=== PATIENT | female | born 1980 | race Caucasian/White ===

== ENCOUNTER 2018-05-20 06:35 | Day surgery (SDC) | payer OTHER ==
--- OUTSIDE RECORDS SUMMARY | 2018-05-20 06:38 | XMS REPORT ---
:1980 Author Organization [employer] Care Team Providers Name Role Phone Lisa Vides Provider Role Unavailable Allergies No Known Allergies Problems Problem Type Condition Code Onset Dates Condition Status Problem Memory deficits R41.3 Active Problem Bipolar 1 disorder F31.9 Active Problem Lightheadedness R42 Active Problem Gastroesophageal reflux disease, K21.9 Active esophagitis presence not specified Problem Circulation problem I99.9 Active Problem ADHD (attention deficit F90.2 Active hyperactivity disorder), combined type Problem Vitamin D deficiency E55.9 Active Problem Morbid obesity E66.01 Active Problem Hypertension, unspecified type I10 Active Problem Vitamin B12 deficiency E53.8 Active Problem Swelling R60.9 Active Problem Allergic arthritis M13.89 Active Assessment ADHD (attention deficit F90.2 Active hyperactivity disorder), combined type Problem Depression with anxiety F41.8 Active Problem Environmental allergies Z91.09 Active Problem Chronic pain syndrome G89.4 Active Medications No Known Medications Results No Known Results Summary Purpose [employer] Submission
--- OUTSIDE RECORDS SUMMARY | 2018-05-20 06:38 | XMS REPORT ---
:1980 Author Organization [employer] Care Team Providers Name Role Phone Lisa Vides Provider Role Unavailable Allergies No Known Allergies Problems Problem Type Condition Code Onset Dates Condition Status Problem Environmental allergies Z91.09 Active Problem Allergic arthritis M13.89 Active Problem Swelling R60.9 Active Problem History of fall Z91.81 Active Problem Acute pain of right knee M25.561 Active Problem Left hip pain M25.552 Active Problem Circulation problem I99.9 Active Problem Hypertension, unspecified type I10 Active Problem ADHD (attention deficit F90.2 Active hyperactivity disorder), combined type Problem Gastroesophageal reflux disease, K21.9 Active esophagitis presence not specified Problem Bipolar 1 disorder F31.9 Active Problem Morbid obesity E66.01 Active Problem Depression with anxiety F41.8 Active Problem Chronic pain syndrome G89.4 Active Problem Vitamin D deficiency E55.9 Active Problem Memory deficits R41.3 Active Problem Vitamin B12 deficiency E53.8 Active Problem Lightheadedness R42 Active Medications No Known Medications Results No Known Results Summary Purpose [employer] Submission
--- OUTSIDE RECORDS SUMMARY | 2018-05-20 06:38 | XMS REPORT ---
:1980 Author Organization [employer] Care Team Providers Name Role Phone Lisa Vides Provider Role Unavailable Allergies No Known Allergies Problems Problem Type Condition Code Onset Dates Condition Status Problem Swelling R60.9 Active Problem Depression with anxiety F41.8 Active Problem Allergic arthritis M13.89 Active Problem Vitamin D deficiency E55.9 Active Problem Morbid obesity E66.01 Active Problem Vitamin B12 deficiency E53.8 Active Problem Memory deficits R41.3 Active Problem Chronic pain syndrome G89.4 Active Problem Bipolar 1 disorder F31.9 Active Problem Lightheadedness R42 Active Problem Hypertension, unspecified type I10 Active Problem Circulation problem I99.9 Active Problem Gastroesophageal reflux disease, K21.9 Active esophagitis presence not specified Problem Environmental allergies Z91.09 Active Medications No Known Medications Results No Known Results Summary Purpose [employer] Submission
--- OUTSIDE RECORDS SUMMARY | 2018-05-20 06:38 | XMS REPORT ---
:1980 Author Organization [employer] Care Team Providers Name Role Phone Lisa Vides Provider Role Unavailable Allergies, Adverse Reactions, Alerts Substance Reaction Event Type adhesives blisters Non Drug Allergy Problems Problem Type Condition Code Onset Dates Condition Status Problem Environmental allergies Z91.09 Active Problem Allergic arthritis M13.89 Active Problem Swelling R60.9 Active Problem History of fall Z91.81 Active Assessment History of fall Z91.81 Active Problem Acute pain of right knee M25.561 Active Assessment Vitamin B12 deficiency E53.8 Active Assessment Vitamin D deficiency E55.9 Active Problem Left hip pain M25.552 Active Problem Circulation problem I99.9 Active Problem Hypertension, unspecified type I10 Active Problem ADHD (attention deficit F90.2 Active hyperactivity disorder), combined type Problem Gastroesophageal reflux disease, K21.9 Active esophagitis presence not specified Problem Bipolar 1 disorder F31.9 Active Problem Morbid obesity E66.01 Active Assessment Acute pain of right knee M25.561 Active Assessment Left hip pain M25.552 Active Problem Depression with anxiety F41.8 Active Problem Chronic pain syndrome G89.4 Active Problem Vitamin D deficiency E55.9 Active Problem Memory deficits R41.3 Active Problem Vitamin B12 deficiency E53.8 Active Problem Lightheadedness R42 Active Medications Medication Code Code Instructions Start End Status Dosage System Date Date Tramadol HCl [facility] 28400815181 50 MG Orally March 31April Active 1 tablet as Twice daily 2017 12, needed for 2017 pain Robaxin-750 [facility] 82109615667 750 MG Orally March 31May Active 1 tablet as Twice daily 2017 12, needed for 2018 muscle cramps/pain Topamax [facility] 02461643855 100 mg Orally Active 1 tablet Twice a day Omeprazole [facility] 00517270791 40 MG Orally Active 1 capsule twice daily [place] [facility] 41017921337 5-325 MG Orally Active 1 tablet as every 6 hrs needed Klonopin [facility] 19568503313 2 MG Orally PRN Active 1 tablet Vyvanse [facility] 76312147167 70 MG Orally Active 1 capsule in Once a day the morning Vitamin B12 [facility] 68295486209 1000 MCG Orally March 31Jun 29, Active 1 tablet Once a day 2017 2017 Abilify [facility] 47692719491 20 MG Orally Active 1 tablet Once a day Gabapentin [facility] 30234885545 600 MG Orally Active 1 tablet Three times a day Potassium [facility] 51543758330 10 MEQ Orally Active 1 tablet Chloride Jane Twice a day with food ER Furosemide [facility] 48658773561 20 MG Orally Active 1 tablet Once a day Citalopram [facility] 67296510920 20 MG Orally Active 1 tablet Hydrobromide Once a day Zanaflex [facility] 59307153567 4 MG Orally Active 1 tablet as Three times a needed day EpiPen 2-Kit [facility] 14988882989 0.3 MG/0.3ML Active as directed Injection as directed Singulair [facility] 31509011016 10 MG Orally March Active 1 tablet for Once a day 2017 allergies Wellbutrin XL [facility] 17189506267 150 MG Orally Active 1 tablet in Once a day the morning Vitamin D3 [facility] 51386770769 2000 UNIT March 31, March 31, Active 2 Orally Once a 2017 2018 capsules--ot day c Macrobid [facility] 54409111142 100 mg Orally Active 1 capsule As directed prn UTI symptoms Zantac 150 [facility] 47910930121 150 MG Orally Active 1 tablet Maximum Twice a day Strength Wellbutrin XL [facility] 12457725134 300 MG Orally Active 1 tablet in Once a day the morning Results No Known Results Summary Purpose [employer] Submission
[2018-05-20] MEDS ORDERED: Ringers Lactate 1,000 ML IV ONE (07:06)
[2018-05-20] MEDS ORDERED: PROPOFOL 200 MG/20 ML VIAL IV ONE (07:45)
[2018-05-20] MEDS ORDERED: LIDOCAINE 1% MPF 5 ML VIAL ONE (07:45)
--- NOTE | 2018-06-28 00:47 | OP ---
Surgeon: Clayton Ramirez MD Procedure Performed: Esophagogastroduodenoscopy. Indication For Procedure: Abdominal pain and longstanding GERD. Plan For Anesthesia: Monitored anesthesia care. Complexity: Average. Technique: After obtaining informed consent from the patient and explaining risks and complications which include, but are not limited to bleeding, infection, perforation, and anesthesia complication. The patient was placed in left lateral position and sedation was given. From then on, the scope was advanced into the mouth and carefully guided up till the jejunum/small bowel. After the completion of examination, the equipment and scope were withdrawn and procedure terminated in a safe manner. Findings: No significant abnormality seen in the entire esophagus. 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 Multiple biop sies were taken from the distal esophagus due to the questionable history of Mendoza's. 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 At the site of the anastomosis, there was a mild stenosis that was visualized. This did not pose any difficulty to passage of the scope. Mild erythema seen in the remnant gastric body. Biops ies taken. The small bowel mucosa appeared normal without any ulceration. Complications: None. Tolerance To Anesthesia: Excellent. Postoperative Diagnoses: Gastritis, post gastric surgery, irregular Z-line. Plan: 1.Await pathology results. 2.Oral PPI daily. 3.Follow up in the GI Clinic in 1 to 2 weeks. US/MODL Voice ID: [id number] Report ID: [id number]
== END 2018-05-20 08:40 | disposition home or self-care (01) ==
LOC: OR 06:35
PROVIDERS: ATTEND Internal Medicine Gastroenterology
PROC: 0DB68ZX Excision of Stomach, Via Natural or Artificial Opening Endoscopic, Diagnostic (ICD-10-PCS; 2018-05-20)
PROC: 0DB38ZX Excision of Lower Esophagus, Via Natural or Artificial Opening Endoscopic, Diagnostic (ICD-10-PCS; principal; 2018-05-20 07:30)
DX: K21.0 Gastro-esophageal reflux disease with esophagitis (principal); K29.50 Unspecified chronic gastritis without bleeding; E66.01 Morbid (severe) obesity due to excess calories; Z68.42 Body mass index [BMI] 45.0-49.9, adult
CPT/HCPCS: 88305; 88312

== ENCOUNTER 2019-03-08 08:27 | Emergency (ER) | payer OTHER ==
--- OUTSIDE RECORDS SUMMARY | 2019-03-08 08:46 | XMS REPORT | Clinical Summary ---
:1980 Author Organization [facility] Address [address] [place] [address] Care Team Providers Name Role Phone Lisa Vides MD Primary Care Provider Allergies Active Allergy Reactions Severity Noted Date Comments Adhesive Other (See Comments) 09/16/2014 Even paper tape causes blisters Medications Medication Sig Dispensed Refills Start Date End Date Status cholecalciferol, Take 1,000 0 Active vitamin D3, 1,000 unit Units by capsule mouth daily. lisdexamfetamine Take 70 mg by 0 Active (VYVANSE) 70 MG mouth every capsule morning. TiZANidine (ZANAFLEX) Take 4 mg by 0 Active 4 MG capsule mouth 3 (three) times daily. busPIRone (BUSPAR) 10 Take 10 mg by 0 Active MG tablet mouth 3 (three) times daily. omeprazole (PRILOSEC) Take 40 mg by 0 Active 40 MG capsule mouth daily. buPROPion (WELLBUTRIN Take 450 mg 0 Active XL) 300 MG 24 hr by mouth tablet daily. DULoxetine (CYMBALTA) Take 20 mg by 0 Active 20 MG capsule mouth daily. ARIPiprazole (ABILIFY) Take 20 mg by 0 Active 20 MG tablet mouth daily. montelukast Take 10 mg by 0 Active (SINGULAIR) 10 mg mouth tablet nightly. propranolol (INDERAL) Take 10 mg by 0 Active 10 MG tablet mouth 3 (three) times daily. gabapentin (NEURONTIN) Take 600 mg 0 Active 600 MG tablet by mouth 3 (three) times daily. HYDROcodone-acetaminop Take 1 tablet 0 Discontinued hen (NORCO 5-325) by mouth 8 5-325 mg per tablet every 6 (six) hours as needed for Pain. acetaminophen-codeine Take 2 60 tablet 0 08/17/2018 Discontinued (TYLENOL #3) 300-30 mg tablets by 8 per tablet mouth every 6 (six) hours as needed for up to 10 days. Max Daily Amount: 8 tablets acetaminophen-codeine Take 2 60 tablet 0 08/17/2018 (TYLENOL #3) 300-30 mg tablets by 8 per tablet mouth every 6 (six) hours as needed for up to 10 days. 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 Sleep disorder breathing; Binge eating disorder; Anxiety disorder, unspecified type 08/17/2018 Surgery Hector Barroso LAMINECTOMY,LUMBAR MD Marcelino MIS 08/17/2018 Anesthesia Event Rajani Ellis NP 08/17/2018 Hospital Encounter Hector Barroso Lumbar radiculopathy MD Marcelino (Primary Dx) 08/02/2018 Anesthesia Event Pre-Admission Rajani Ellis NP 08/02/2018 Hospital Encounter Hector Barroso MD 08/02/2018 Hospital Encounter Cardiology Hector Barroso MD 08/02/2018 Hospital Encounter Pre-Admission Hector Barroso MD 08/02/2018 Outside Orders Hector Barroso MD 07/29/2018 Orders Only Hector Barroso Preop any Benson MD (Primary Dx) after 03/07/2018 Social History Tobacco Use Types Packs/Day Years Used Date Former Smoker 1 10 Smokeless Tobacco: Never Used Comments: quit 2010 Alcohol Use Drinks/Week oz/Week Comments No Sex Assigned at Date Recorded Not on file Job Start Date Occupation Industry Not on file Not on file Not on file Travel History Travel Start Travel End No recent travel history available. Last Filed Vital Signs Vital Sign Reading Time Taken Blood Pressure 125/78 08/17/2018 2:35 PM CDT Pulse 62 08/17/2018 1:45 PM CDT Temperature 36.1 C (97 F) 08/17/2018 2:35 PM CDT Respiratory Rate 20 08/17/2018 2:35 PM CDT Oxygen Saturation 98% 08/17/2018 2:35 PM CDT Inhaled Oxygen Concentration - - Weight 147 kg (324 lb) 08/17/2018 6:30 AM CDT Height 170.2 cm (5' 7") 08/17/2018 6:30 AM CDT Body Mass Index 50.75 08/17/2018 6:30 AM CDT Plan of Treatment Date Type Specialty Care Team Description 03/17/2019 Appointment Ravindra Guzman MD [address] [place] [address] [phone] Implants Implanted Type Area Bogger Operator Device Shelf Model / Identifier Expiration Serial / Date Lot Derick sd Full Strlprep 10ml [id number] - [id number] Cement/F Left: CANO: BIOSCI 01/10/2020 [id number] / Implanted: Qty: 1 on 08/17/2018 by Hetcor Barroso MD iller/Ad Spine / hesive Lumbar [id number] Procedures Procedure Name Priority Date/Time Associated Comments Diagnosis TRANSFUSION SERVICE 08/18/2018 5:55 REPORT - SCAN PM CDT FL SEISMOGRAPH HELPER IN OR 30 Routine 08/17/2018 11:53 Results for this MINUTE INCREMENTS AM CDT procedure are in the results section. NEEDLE EMG, 2 EXTREMITY Routine 08/17/2018 11:47 Results for this AM CDT procedure are in the results section. TISSUE EXAM AP Routine 08/17/2018 11:42 Results for this AM CDT procedure are in the results section. FL SEISMOGRAPH HELPER IN OR 30 Routine 08/17/2018 11:11 Results for this MINUTE INCREMENTS AM CDT procedure are in the results section. FL SEISMOGRAPH HELPER IN OR 30 Routine 08/17/2018 10:39 Results for this MINUTE INCREMENTS AM CDT procedure are in the results section. PROCEDURE W/ 08/17/2018 9:56 Left lumbar INTRAOPERATIVE AM CDT radiculopathy NEUROMONITORING Herniated nucleus pulposus, lumbar Case Notes 2 HOURS Special Needs (PRONE POSITION, C-ARM, NEURO-MONITORING: EMG, MICROSCOPE, BOAZ TABLE, GLOBUS) PROCEDURE W/ C-ARM 08/17/2018 9:56 AM CDT Left lumbar radiculopathy Herniated nucleus pulposus, lumbar Case Notes 2 HOURS Special Needs (PRONE POSITION, C-ARM, NEURO-MONITORING: EMG, MICROSCOPE, BOAZ TABLE, GLOBUS) LAMINECTOMY,LUMBAR MIS 08/17/2018 9:56 AM Left lumbar radiculopathy CDT Herniated nucleus pulposus, lumbar Case Notes 2 HOURS Special Needs (PRONE POSITION, C-ARM, NEURO-MONITORING: EMG, MICROSCOPE, BOAZ TABLE, GLOBUS) TYPE AND SCREEN, AUTOMATED Routine 08/17/2018 7:20 AM CDT XR CHEST 2 VIEWS Routine 08/02/2018 1:52 PM CDT ECG 12-LEAD Routine 08/02/2018 1:26 PM CDT Procedure Note - Interface, External Ris In - 08/02/2018 5:17 PM CDT Ventricular Rate 71 BPM Atrial Rate 71 BPM P-R Interval 120 ms QRS Duration 90 ms Q-T Interval 390 ms QTC Calculation(Bazett) 423 ms P [employer] 21 degrees R [employer] -6 degrees T [employer] -12 degrees Normal sinus rhythm Moderate voltage criteria for LVH, may be normal variant T wave abnormality, consider anterior ischemia Abnormal ECG No previous ECGs available ECG 12-LEAD Routine 08/02/2018 1:26 PM CDT CBC W/PLT COUNT & AUTO Routine 08/02/2018 1:21 PM CDT Results for this DIFFERENTIAL procedure are in the results section. URINALYSIS W/ MICROSCOPIC Routine 08/02/2018 1:21 PM CDT PROTHROMBIN TIME/INR Routine 08/02/2018 1:21 PM CDT APTT Routine 08/02/2018 1:21 PM CDT BASIC METABOLIC PANEL (7) Routine 08/02/2018 1:21 PM CDT CBC W/PLT COUNT & AUTO Routine 08/02/2018 1:21 PM CDT Results for this DIFFERENTIAL procedure are in the results section. after 03/07/2018 Results TRANSFUSION SERVICE REPORT - SCAN (08/18/2018 5:55 PM CDT) Narrative Performed At FL grades 1 6 tutor in or 30 minute increments (08/17/2018 11:53 AM CDT)Only the most recent of3 resultswithin the time period is included. Narrative Performed At FLUOROSCOPIC UNIT UTILIZED-NO INTERPRETATION REQUESTED. [facility] Procedure Note Interface, External Ris In - 08/25/2018 1:13 PM CDT FLUOROSCOPIC UNIT UTILIZED-NO INTERPRETATION REQUESTED. Performing Organization Address City/State/Zipcode Phone Number AN COY NEEDLE EMG, 2 EXTREMITY (08/17/2018 11:47 AM CDT) Narrative Performed At INTRAOPERATIVE MONITORING REPORT GE ANNELIESE Patient Name: Martha LouRN :[id number] [facility] Surgery Date: 08/17/2018 Ladi Pro: [id number] Monitoring began at 0935 and ended at 1147 Surgeon: Hector Barroso M.D Examining Physician : Jese Hilton M.D Monitoring Technologist: DEBBIE Meyers Procedure: L4-L5 Discectomy Free-running EMG of bilateral Vastus Lateralis (L2-L4), Tibialis Anterior (L4-L5), Lateral Gastrocnemius (L5-S2) muscle groups Description: Intraoperative neurophysiological monitoring was performed using free-running EMGs. A real- time connection with the examining neurologist was established and maintained throughout the operative procedure by the monitoring technologist. Free-running EMG of L2-S2 innervated muscle groups was monitored continuously throughout the operative procedure with no sustained neurotonic discharges seen at baselines. Surgeon aware. Sporadic EMG firing was present during procedure but at closing all EMG was quiet and stable with baselines. Surgeon aware of all responses during the procedure and at closing of case. Conclusion: Absence of sustained neurotonic discharges on free-running EMG suggests that the nerve roots monitored remained undisturbed. Jese Hilton M.D., [place], BRENDAN, PURNIMA Professor of Neurology, [facility] [employer] Director, [facility] Head, [facility] Neurophysiology [facility] M54.16 Procedure Note Interface, External Ris In - 08/19/2018 12:43 PM CDT INTRAOPERATIVE MONITORING REPORT Patient Name: Martha Garcia [facility] Surgery Date: 08/17/2018 Ladi Pro: [id number] Monitoring began at 0935 and ended at 1147 Surgeon: Hector Barroso M.D Examining Physician : Jese Hilton M.D Monitoring Technologist: DEBBIE Meyers Procedure: L4-L5 Discectomy Free-running EMG of bilateral Vastus Lateralis (L2-L4), Tibialis Anterior (L4-L5), Lateral Gastrocnemius (L5-S2) muscle groups Description: Intraoperative neurophysiological monitoring was performed using free-running EMGs. A real- time connection with the examining neurologist was established and maintained throughout the operative procedure by the monitoring technologist. Free-running EMG of L2-S2 innervated muscle groups was monitored continuously throughout the operative procedure with no sustained neurotonic discharges seen at baselines. Surgeon aware. Sporadic EMG firing was present during procedure but at closing all EMG was quiet and stable with baselines. Surgeon aware of all responses during the procedure and at closing of case. Conclusion: Absence of sustained neurotonic discharges on free-running EMG suggests that the nerve roots monitored remained undisturbed. Jese Hilton M.D., BRENDAN FIGUEROA FAES Professor of Neurology, [facility] [employer] Director, [facility] Head, Maninder Salazar Neurophysiology Lab M54.16 Performing Organization Address City/State/Zipcode Phone Number GE RIS Tissue Exam (08/17/2018 11:42 AM CDT) Case Report Surgical Pathology Report Case: [id number] [facility] Authorizing Provider:Hector Barroso MDCollected: 08/17/[address] [facility] Ordering Location: [facility] PERIOPERATIVE Received: 08/17/2018 1146 SERVICES Pathologist: Phoenix George MD Specimen:Disc L4-5 DIAGNOSIS VERTEBRAL COLUMN, INTERVERTEBRAL DISC, L4-5, DISCECTOMY: [facility] FRAGMENTS OF FIBROCARTILAGE WITH MILD DEGENERATIVE CHANGES [facility] Signing Pathologist Direct Phone Line: [phone] CPT Code(s) 09248; 61164 [facility] CLINICAL HISTORY Left lumbar radiculopathy, [facility] herniated nucleus pulposus of [facility] the lumbar SPECIMEN SOURCE Disc L4-5 [facility] GROSS DESCRIPTION The specimen is received in [facility] saline labeled with the [facility] patient's information and labeled "disc L4-5" and consists of a small segment of palafox-pink fibrocartilaginous tissue measuring 0.5 cm in greatest dimensio submitted entirely A1 for light decalcification. CG/pl MICROSCOPIC DESCRIPTION Performed [facility] Specimen Tissue - Disc L4-5 Performing Organization Address City/[facility] Phone Number [address] [address] [phone] CENTER Type and screen, automated (08/17/2018 7:20 AM CDT) ABO/RH AUTOMATED (BEAKER) O NEGATIVE [facility] Ab Scrn NEGATIVE [facility] Specimen Blood Performing Organization Address City/[facility] Facility[facility] Phone Number [facility] [address] [place] [phone] XR chest 2 views (08/02/2018 1:52 PM CDT) Narrative Performed At FINAL REPORT [facility] History: Low back pain, preoperative examination for lumbar laminectomy Comparison: No comparison chest imaging Findings: The lungs are clear. No pleural effusions or pneumothorax. A small hiatal hernia projects in the retrocardiac region. The heart shadow is normal in size. The thoracic aorta is mildly tortuous. Degenerative and scoliotic changes are present in the spine. Impression: No evidence of acute cardiopulmonary disease. Signed: Agustin Adrian MD Report Verified Date/Time:08/02/2018 14:01:18 Reading Location: [facility] Radiology Reading Room Procedure Note Interface, External Ris In - 08/02/2018 2:03 PM CDT FINAL REPORT History: Low back pain, preoperative examination for lumbar laminectomy Comparison: No comparison chest imaging Findings: The lungs are clear. No pleural effusions or pneumothorax. A small hiatal hernia projects in the retrocardiac region. The heart shadow is normal in size. The thoracic aorta is mildly tortuous. Degenerative and scoliotic changes are present in the spine. Impression: No evidence of acute cardiopulmonary disease. Signed: Agustin Adrian MD Report Verified Date/Time: 08/02/2018 14:01:18 Reading Location: [facility] Radiology Reading Room Performing Organization Address City/[facility] FacilityGroupVoxpa Phone Number GE [facility] ECG 12 lead (08/02/2018 1:26 PM CDT) Narrative Performed At Ventricular Rate 71 BPM GE MUSE Atrial Rate 71 BPM P-R Interval 120 ms QRS Duration 90 ms Q-T Interval 390 ms QTC Calculation(Bazett) 423 ms P [employer] 21 degrees R [employer] -6 degrees T [employer] -12 degrees Normal sinus rhythm Moderate voltage criteria for LVH, may be normal variant Poor R wave progression T wave inversion anterior leads, can be normal for a woman Abnormal ECG No previous ECGs available Confirmed by MD PEDROZA YOCHAI ([id number]) on 08/03/2018 6:10:32 AM Procedure Note Interface, External Ris In - 08/03/2018 6:10 AM CDT Ventricular Rate 71 BPM Atrial Rate 71 BPM P-R Interval 120 ms QRS Duration 90 ms Q-T Interval 390 ms QTC Calculation(Bazett) 423 ms P [employer] 21 degrees R [employer] -6 degrees T [employer] -12 degrees Normal sinus rhythm Moderate voltage criteria for LVH, may be normal variant Poor R wave progression T wave inversion anterior leads, can be normal for a woman Abnormal ECG No previous ECGs available Confirmed by MD PEDROZA YOCHAI ([id number]) on 08/03/2018 6:10:32 AM Performing Organization Address [facility] Facilitycopa Phone Number GE MUSE CBC with platelet count + automated diff (08/02/2018 1:21 PM CDT) WBC 8.3 3.5 - 10.5 K/L [facility] RBC 4.87 3.93 - 5.22 M/L [facility] Hemoglobin 13.0 11.2 - 15.7 GM/DL [facility] Hematocrit 41.8 34.1 - 44.9 % [facility] MCV 85.8 79.4 - 94.8 fL [facility] MCH 26.7 25.6 - 32.2 pg [facility] MCHC 31.1 (L) 32.2 - 35.5 GM/DL [facility] RDW 14.5 (H) 11.7 - 14.4 % [facility] Platelets 245 150 - 450 K/CU MM [facility] MPV 11.7 9.4 - 12.3 fL [facility] nRBC 0 0 - 0 /100 WBC [facility] % Neutros 61 % [facility] % Lymphs 32 % [facility] % Monos 6 % [facility] % Eos 0 % [facility] % Baso 1 % [facility] # Neutros 5.08 1.56 - 6.13 K/L [facility] # Lymphs 2.66 1.18 - 3.74 K/L [facility] # Monos 0.46 (H) 0.24 - 0.36 K/L [facility] # Eos 0.03 (L) 0.04 - 0.36 K/L [facility] # Baso 0.04 0.01 - 0.08 K/L [facility] Immature Granulocytes-Relative 0 0 - 1 % [facility] Specimen Blood Performing Organization Address City/State/Zipcode Phone Number [address] [address] [phone] [place] Urinalysis w/Microscopic (08/02/2018 1:21 PM CDT) Color, UA Yellow [facility] Clarity, UA Clear [facility] Specific [place], UA 1.020 1.001 - 1.035 [facility] pH, UA 7.0 5.0 - 8.0 [facility] Protein, UA Negative Negative [facility] Glucose, UA Negative Negative [facility] Ketones, UA Negative Negative [facility] Bilirubin, UA Negative Negative [facility] Blood, UA Negative Negative [facility] Nitrite, UA Negative Negative [facility] Leukocytes, UA Negative Negative [facility] Urobilinogen, UA 2.0 (H) 0.2 - 1.0 mg/dL [facility] RBC, UA <1 /HPF [facility] WBC, UA <1 /HPF [facility] Bacteria, UA Rare [facility] Mucus Rare [facility] Squam Epithel, UA 3 /HPF [facility] Specimen Source [facility] Specimen Urine Performing Organization Address City/State/Zipcode Phone Number [address] [address] CENTER aPTT (08/02/2018 1:21 PM CDT) PTT 29.7 22.5 - 36.0 seconds [facility] Specimen Blood Performing Organization Address City/[facility]/Zipcode Phone Number [address] [address] [phone] CENTER Prothrombin time/INR (08/02/2018 1:21 PM CDT) Protime 13.6 11.7 - 14.7 seconds [facility] INR 1.0 <=5.9 [facility] Specimen Blood Narrative Performed At [facility] RECOMMENDED COUMADIN/WARFARIN INR THERAPY RANGES STANDARD DOSE: 2.0 - 3.0 Includes: PROPHYLAXIS for venous thrombosis, systemic embolization; TREATMENT for venous thrombosis and/or pulmonary embolus. HIGH RISK: Target INR is 2.5-3.5 for patients with mechanical heart valves. Performing Organization Address City/[facility]/Zipcode Phone Number [facility] [address] [place] [address] [phone] CENTER Basic Metabolic Panel (08/02/2018 1:21 PM CDT) Sodium 141 136 - 145 meq/L [facility] Potassium 4.3 3.5 - 5.1 meq/L [facility] Chloride 107 98 - 107 meq/L [facility] CO2 26 22 - 29 meq/L [facility] BUN 11 7 - 21 mg/dL [facility] Creatinine 0.86 0.57 - 1.25 mg/dL [facility] Glucose 80 70 - 105 mg/dL [facility] Calcium 9.5 8.4 - 10.2 mg/dL [facility] EGFR 75Comment: ESTIMATED GFR IS mL/min/1.73 sq m [facility] NOT ACCURATE CREATININE [facility] CLEARANCE IN PREDICTING GLOMERULAR FILTRATION RATE. ESTIMATED GFR IS NOT APPLICABLE FOR DIALYSIS PATIENTS. Specimen Blood Performing Organization Address City/State/Zipcode Phone Number [facility] [address] [place] [address] CENTER after 03/07/2018 Insurance Payer Benefit Plan / Group Subscriber ID Type Phone Address ESPERANZA MATOS xxxxxxxxxxx Advance Directives For more information, please contact:[address] [phone] Code Status Date Activated Date Inactivated Comments Full Code 08/17/2018 6:35 AM 08/17/2018 5:29 PM This code status was determined by: Patient
--- OUTSIDE RECORDS SUMMARY | 2019-03-08 08:47 | XMS REPORT ---
[...] Medications Results No Known Results Summary Purpose [employer] Submission
--- OUTSIDE RECORDS SUMMARY | 2019-03-08 08:47 | XMS REPORT ---
:1980 Author Organization eClinicalWorks Care Team Providers Name Role Phone Lisa Vides Provider Role Unavailable Allergies, Adverse Reactions, Alerts Substance Reaction Event Type adhesives blisters Non Drug Allergy Problems Problem Type Condition Code Onset Dates Condition Status Assessment Bipolar affective disorder, F31.9 Active remission status unspecified Assessment Attention deficit disorder, F98.8 Active unspecified hyperactivity presence Assessment Depression with anxiety F41.8 Active Assessment Chronic pain syndrome G89.4 Active Assessment Environmental allergies Z91.09 Active Assessment Morbid obesity E66.01 Active Assessment Dietary counseling Z71.3 Active Assessment Vitamin D deficiency E55.9 Active Problem Swelling R60.9 Active Assessment Vitamin B12 deficiency E53.8 Active Problem Allergic arthritis M13.89 Active Assessment Gastroesophageal reflux disease, K21.9 Active esophagitis presence not specified Problem Gastroesophageal reflux disease, K21.9 Active esophagitis presence not specified Problem Hypertension, unspecified type I10 Active Problem Circulation problem I99.9 Active Problem History of fall Z91.81 Active Problem Acute pain of right knee M25.561 Active Problem Bipolar 1 disorder F31.9 Active Problem Left hip pain M25.552 Active Assessment Hypertension, unspecified type I10 Active Problem Dietary counseling Z71.3 Active Problem Attention deficit disorder, F98.8 Active unspecified hyperactivity presence Problem ADHD (attention deficit F90.2 Active hyperactivity disorder), combined type Problem Bipolar affective disorder, F31.9 Active remission status unspecified Problem Vitamin B12 deficiency E53.8 Active Problem Depression with anxiety F41.8 Active Problem Morbid obesity E66.01 Active Problem Vitamin D deficiency E55.9 Active Problem Lightheadedness R42 Active Problem Environmental allergies Z91.09 Active Problem Chronic pain syndrome G89.4 Active Problem Memory deficits R41.3 Active Medications Medication Code Code Instructions Start End Status Dosage System Date Date Wellbutrin XL ND 38233533426 150 MG Orally Active 1 tablet in Once a day the morning Abilify ND 88122432575 20 MG Orally Active 1 tablet Once a day Furosemide ND 92440478744 20 MG Orally Active 1 tablet Once a day Macrobid [facility] 90555187309 100 mg Orally Active 1 capsule As directed prn UTI symptoms Potassium [facility] 62751596261 10 MEQ Orally Active 1 tablet Chloride Jane Twice a day with food ER Zanaflex [facility] 97398737011 4 MG Orally Active 1 tablet as Three times a needed day [place] [facility] 83908605587 5-325 MG Orally Active 1 tablet as every 6 hrs needed Klonopin [facility] 83963455992 2 MG Orally PRN Active 1 tablet Robaxin-750 [facility] 90315886699 750 MG Orally March 31May Active 1 tablet as Twice daily 2017 12, needed for 2018 muscle cramps/pain EpiPen 2-Kit [facility] 22476673203 0.3 MG/0.3ML Active as directed Injection as directed Singulair [facility] 52552007118 10 MG Orally March Active 1 tablet Once a day 2017 for allergies Omeprazole [facility] 59205160908 40 MG Orally Active 1 capsule twice daily Gabapentin [facility] 60414642454 600 MG Orally Active 1 tablet Three times a day Wellbutrin XL [facility] 19684113894 300 MG Orally Active 1 tablet in Once a day the morning Zantac 150 [facility] 92566577323 150 MG Orally Inactive 1 tablet Maximum Twice a day Strength Vitamin B12 [facility] 32259196382 1000 MCG Orally March 31Jun Active 1 tablet Once a day 2017 Citalopram [facility] 53657502196 20 MG Orally Active 1 tablet Hydrobromide Once a day Vyvanse [facility] 36634928265 70 MG Orally Active 1 capsule Once a day in the morning Topamax [facility] 45428934165 100 mg Orally Inactive 1 tablet Twice a day Results No Known Results Summary Purpose eClinicalWorks Submission
--- OUTSIDE RECORDS SUMMARY | 2019-03-08 08:47 | XMS REPORT ---
[...] Status Dosage System Date Date Tramadol HCl [facility] 11051009433 50 MG Orally March 31April Active 1 tablet as Twice daily 2017 12, needed for 2017 pain Robaxin-750 [facility] 84788366667 750 MG Orally March 31May Active 1 tablet as Twice daily 2017 12, needed for 2018 muscle cramps/pain Topamax [facility] 10738747391 100 mg Orally Active 1 tablet Twice a day Omeprazole [facility] 77538983732 40 MG Orally Active 1 capsule twice daily [place]elle [facility] 47328741359 5-325 MG Orally Active 1 tablet as every 6 hrs needed Klonopin [facility] 36054410790 2 MG Orally PRN Active 1 tablet Vyvanse [facility] 32080807746 70 MG Orally Active 1 capsule in Once a day the morning Vitamin B12 [facility] 03869950536 1000 MCG Orally March 31Jun 29, Active 1 tablet Once a day 2017 2017 Abilify [facility] 91857075667 20 MG Orally Active 1 tablet Once a day Gabapentin [facility] 17590295022 600 MG Orally Active 1 tablet Three times a day Potassium [facility] 19273867899 10 MEQ Orally Active 1 tablet Chloride Jane Twice a day with food ER Furosemide [facility] 65377929231 20 MG Orally Active 1 tablet Once a day Citalopram [facility] 74511304343 20 MG Orally Active 1 tablet Hydrobromide Once a day Zanaflex [facility] 96545697190 4 MG Orally Active 1 tablet as Three times a needed day EpiPen 2-Kit [facility] 15514191770 0.3 MG/0.3ML Active as directed Injection as directed Singulair [facility] 97949878458 10 MG Orally March Active 1 tablet for Once a day 2017 allergies Wellbutrin XL [facility] 73936358876 150 MG Orally Active 1 tablet in Once a day the morning Vitamin D3 [facility] 93497489067 2000 UNIT March 31, March 31, Active 2 Orally Once a 2017 2018 capsules--ot day c Macrobid [facility] 80177483672 100 mg Orally Active 1 capsule As directed prn UTI symptoms Zantac 150 [facility] 39792023174 150 MG Orally Active 1 tablet Maximum Twice a day Strength Wellbutrin XL [facility] 74867687165 300 MG Orally Active 1 tablet in Once a day the morning Results No Known Results Summary Purpose eClinicalWorks Submission
--- OUTSIDE RECORDS SUMMARY | 2019-03-08 08:47 | XMS REPORT ---
:1980 [facility] Address [address] [place] [address] [address] [place] [address] Care Team Providers Name Role Phone PAPITO BARROSO Unavailable Unavailable Problems This patient has no known problems. Allergies, Adverse Reactions, Alerts This patient has no known allergies or adverse reactions. Medications This patient has no known medications. Results Test Description Test Time Test Comments Text Results Atomic Results Result Comments NELLIE ARCINIEGA IN 2018-08-25 Reason for FLUOROSCOPIC UNIT OR/30 MINUTE 13:13:00 exam:->back pain UTILIZED-NO INTERPRETATION INCREMENTS REQUESTED. UE EXAM 2018-08-22 Surgical Pathology Report 13:20:00 Case: [id number] Authorizing Provider: Papito Barroso MD Collected: 08/17/2018 1142 Ordering Location: [facility] PERIOPERATIVE Received: 08/17/2018 1146 SERVICES Pathologist: Phoenix George MD Specimen: Disc L4-5 VERTEBRAL COLUMN, INTERVERTEBRAL DISC, L4-5, DISCECTOMY:FRAGMENTS OF FIBROCARTILAGE WITH MILD DEGENERATIVE CHANGES Signing Pathologist Direct Phone Line: [phone] signed by Phoenix George MD on 08/22/2018 at 1:20 [id number]; [id number] lumbar radiculopathy, herniated nucleus pulposus of the lumbarDisc L4-5The specimen is received in saline labeled with the patient's information and labeled "disc L4-5" and consists of a small segment of palafox-pink fibrocartilaginous tissue measuring 0.5 cm in greatest dimensio submitted entirely A1 for light decalcification. CG/pl Performed NEEDLE EMG, 2 2018-08-19 INTRAOPERATIVE MONITORING EXTREMITY 12:43:00 REPORT Patient Name: Jana Garcia [facility] [place] Surgery Date: 08/17/2018 Ladi Pro: [id number] Monitoring began at 0935 and ended at 1147 Surgeon: Papito Barroso M.D Examining Physician : Jese Talbot M.D Monitoring Technologist: DEBBIE Meyers Procedure: L4-L5 Discectomy Free-running EMG of bilateral Vastus Lateralis (L2-L4), Tibialis Anterior (L4-L5), LateralGastrocnemius (L5-S2) muscle groups Description: Intraoperative neurophysiological monitoring was performed using free-runningEMGs. A real- time connection with the examining neurologist was established and maintainedthroughout the operative procedure by the monitoring technologist. Free-running EMG of L2-J8hqpajisszw muscle groups was monitored continuously throughout the operative procedure withno sustained neurotonic discharges seen at baselines. Surgeon aware. Sporadic EMG firing waspresent during procedure but at closing all EMG was quiet and stable with baselines. Surgeonaware of all responses during the procedure and at closing of case. Conclusion:Absence of sustained neurotonic discharges on free-running EMG suggests that the nerve rootsmonitored remained undisturbed. Jese Talbot M.D., [place], [place], FAESProfessor of Neurology, [facility] [employer] [facility] ColumbusDirector, [facility] Epilepsy [facility], [facility] Neurophysiology LabM54.16 [facility] [place] 2018-08-17 Reason for FINAL REPORT PATIENT ID: OR/30 MINUTE 11:16:00 exam:->back pain [id number] Lumbar spine one INCREMENTS lateral fluoroscopic image. Fluoroscopy time 13.2 seconds. Fluoroscopy was not performed by the undersigned. Refer to procedure notes for diagnostic and therapeutic detail. Marker projects L4/5 assuming five lumbar type vertebrae. Report called to Dr. Barroso who was in agreement. Signed: Jackie Gaines MDReport Verified Date/Time: 08/17/2018 11:16:40 Reading Location: [facility] Radiology Reading Room IE ARCINIEGA IN 2018-08-17 Reason for FINAL REPORT PATIENT ID: OR/30 MINUTE 10:43:00 exam:->back pain [id number] Fluoroscopy. INCREMENTS History: Intraoperative. Findings: Radiologist was not present for the exam. Fluoroscopy was not performed by the undersigned. A single image from intraoperative fluoroscopy demonstrates lateral view of the lumbar spine with localization at the L5 level. Finds were discussed with the operating room staff at time of interpretation. IMPRESSION:Intraoperative exam as described above. Signed: Brittani Gee MDReport Verified Date/Time: 08/17/2018 10:43:15 Reading Location: [address] Radiology Reading Room C METABOLIC PANEL 2018-08-02 14:44:00 Test Item Value Reference Range Comments SODIUM (BEAKER) (test 141 meq/L 136-145 agch=691) POTASSIUM (BEAKER) (test 4.3 meq/L 3.5-5.1 ukyg=500) CHLORIDE (BEAKER) (test 107 meq/L 98-107 dvwz=319) CO2 (BEAKER) (test svpq=943) 26 meq/L 22-29 BLOOD UREA NITROGEN (BEAKER) 11 mg/dL 7-21 (test zdvb=163) CREATININE (BEAKER) (test 0.86 mg/dL 0.57-1.25 shso=122) GLUCOSE RANDOM (BEAKER) 80 mg/dL 70-105 (test wlkj=475) CALCIUM (BEAKER) (test 9.5 mg/dL 8.4-10.2 msiq=507) EGFR (BEAKER) (test 75 mL/min/1.73 sq m ESTIMATED GFR IS NOT tmzs=2213) ACCURATE CREATININE CLEARANCE IN PREDICTING GLOMERULAR FILTRATION RATE. ESTIMATED GFR IS NOT APPLICABLE FOR DIALYSIS PATIENTS. URINALYSIS W/ [id number] 14:09:00 Test Item Value Reference Range Comments COLOR (BEAKER) (test kybg=147) Yellow CLARITY (BEAKER) (test sqff=899) Clear SPECIFIC GRAVITY UA (BEAKER) (test ykyn=893) 1.020 1.001-1.035 PH UA (BEAKER) (test wcpq=395) 7.0 5.0-8.0 PROTEIN UA (BEAKER) (test mmtx=924) Negative Negative GLUCOSE UA (BEAKER) (test pcfv=577) Negative Negative KETONES UA (BEAKER) (test nbub=529) Negative Negative BILIRUBIN UA (BEAKER) (test nxvo=142) Negative Negative BLOOD UA (BEAKER) (test aqvy=622) Negative Negative NITRITE UA (BEAKER) (test vonj=241) Negative Negative LEUKOCYTE ESTERASE UA (BEAKER) (test gbht=663) Negative Negative UROBILINOGEN UA (BEAKER) (test gqic=120) 2.0 mg/dL 0.2-1.0 RBC UA (BEAKER) (test nmyc=156) < /HPF WBC UA (BEAKER) (test lzda=610) < /HPF BACTERIA (BEAKER) (test xveg=183) Rare MUCUS (BEAKER) (test qwgw=1674) Rare SQUAMOUS EPITHELIAL (BEAKER) (test nldi=438) 3 /HPF SOURCE(BEAKER) (test gwma=3130) [id number] 14:07:00 Test Item Value Reference Range Comments PARTIAL THROMBOPLASTIN TIME (BEAKER) (test 29.7 seconds 22.5-36.0 ixmr=089) PROTHROMBIN TIME/[id number] 14:06:00 Test Item Value Reference Range Comments PROTIME (BEAKER) (test yyau=062) 13.6 seconds 11.7-14.7 INR (BEAKER) (test pkla=772) 1.0 <=5.9 RECOMMENDED COUMADIN/WARFARIN INR THERAPY RANGESSTANDARD DOSE: 2.0 - 3.0 Includes: PROPHYLAXIS forvenous thrombosis, systemic embolization; TREATMENT for venous thrombosis and/or pulmonary embolus.HIGH RISK: Target INR is 2.5-3.5 for patients with mechanical heart valves.RAD, CHEST, 2 [id number] 14:01: 00Reason for exam:->pre op for lumbar laminectomyShould this be performed at the bedside?->NoFINAL REPORT History: Low back pain, preoperative examination [...] of acute cardiopulmonary disease. Signed: Agustin Adrian MDReport Verified Date/Time: 02/2018 14:01:18 Reading Location: [facility] Radiology Reading Room CBC W/PLT COUNT & AUTO [id number] 14:00:00 Test Item Value Reference Range Comments WHITE BLOOD CELL COUNT (BEAKER) (test aapq=910) 8.3 K/ L 3.5-10.5 RED BLOOD CELL COUNT (BEAKER) (test kzll=897) 4.87 M/ L 3.93-5.22 HEMOGLOBIN (BEAKER) (test gmlu=199) 13.0 GM/DL 11.2-15.7 HEMATOCRIT (BEAKER) (test bxca=411) 41.8 % 34.1-44.9 MEAN CORPUSCULAR VOLUME (BEAKER) (test xabq=445) 85.8 fL 79.4-94.8 MEAN CORPUSCULAR HEMOGLOBIN (BEAKER) (test 26.7 pg 25.6-32.2 pcuy=944) MEAN CORPUSCULAR HEMOGLOBIN CONC (BEAKER) (test 31.1 GM/DL 32.2-35.5 jdhn=937) RED CELL DISTRIBUTION WIDTH (BEAKER) (test 14.5 % 11.7-14.4 ouwu=806) PLATELET COUNT (BEAKER) (test ghpp=496) 245 K/CU MM 150-450 MEAN PLATELET VOLUME (BEAKER) (test mllg=214) 11.7 fL 9.4-12.3 NUCLEATED RED BLOOD CELLS (BEAKER) (test 0 /100 WBC 0-0 pphn=651) NEUTROPHILS RELATIVE PERCENT (BEAKER) (test 61 % rghr=639) LYMPHOCYTES RELATIVE PERCENT (BEAKER) (test 32 % gwwb=714) MONOCYTES RELATIVE PERCENT (BEAKER) (test 6 % bmmx=824) EOSINOPHILS RELATIVE PERCENT (BEAKER) (test 0 % xiab=013) BASOPHILS RELATIVE PERCENT (BEAKER) (test 1 % pgxq=638) NEUTROPHILS ABSOLUTE COUNT (BEAKER) (test 5.08 K/ L 1.56-6.13 sgjy=171) LYMPHOCYTES ABSOLUTE COUNT (BEAKER) (test 2.66 K/ L 1.18-3.74 sosf=373) MONOCYTES ABSOLUTE COUNT (BEAKER) (test 0.46 K/ L 0.24-0.36 shzi=069) EOSINOPHILS ABSOLUTE COUNT (BEAKER) (test 0.03 K/ L 0.04-0.36 dgaa=302) BASOPHILS ABSOLUTE COUNT (BEAKER) (test 0.04 K/ L 0.01-0.08 pnuw=091) IMMATURE GRANULOCYTES-RELATIVE PERCENT (BEAKER) 0 % 0-1 (test msjl=4394)
--- OUTSIDE RECORDS SUMMARY | 2019-03-08 08:48 | XMS REPORT ---
:1980 Author Organization eClinicalWorks Care Team Providers Name Role Phone Lisa Vides Provider Role Unavailable Allergies No Known Allergies Problems Problem Type Condition Code Onset Dates Condition Status Problem Circulation problem I99.9 Active Problem Attention deficit disorder, F98.8 Active unspecified hyperactivity presence Problem Hypertension, unspecified type I10 Active Problem Acute pain of right knee M25.561 Active Problem Morbid obesity E66.01 Active Problem Left hip pain M25.552 Active Problem Bipolar 1 disorder F31.9 Active Problem Dietary surveillance and counseling Z71.3 Active Problem Bipolar affective disorder, F31.9 Active remission status unspecified Problem Dietary counseling Z71.3 Active Problem History of fall Z91.81 Active Problem ADHD (attention deficit F90.2 Active hyperactivity disorder), combined type Problem Depression with anxiety F41.8 Active Problem Chronic pain syndrome G89.4 Active Problem Vitamin D deficiency E55.9 Active Problem Vitamin B12 deficiency E53.8 Active Problem Environmental allergies Z91.09 Active Problem Swelling R60.9 Active Problem Memory deficits R41.3 Active Problem Allergic arthritis M13.89 Active Problem Lightheadedness R42 Active Problem Gastroesophageal reflux disease, K21.9 Active esophagitis presence not specified Medications No Known Medications Results No Known Results Summary Purpose eClinicalWorks Submission
--- OUTSIDE RECORDS SUMMARY | 2019-03-08 08:48 | XMS REPORT ---
:1980 Author Organization eClinicalWorks Care Team Providers Name Role Phone Peewee Lisa Provider Role Unavailable Allergies, Adverse Reactions, Alerts Substance Reaction Event Type adhesives blisters Non Drug Allergy Problems Problem Type Condition Code Onset Dates Condition Status Assessment Bipolar affective disorder, F31.9 Active remission status unspecified Assessment Attention deficit disorder, F98.8 Active unspecified hyperactivity presence Assessment Depression with anxiety F41.8 Active Assessment Environmental allergies Z91.09 Active Assessment Morbid obesity with body mass index E66.01 Active (BMI) greater than or equal to 50 Assessment Dietary surveillance and counseling Z71.3 Active Assessment History of hypertension Z86.79 Active Problem Hypertension, unspecified type I10 Active Assessment Gastroesophageal reflux disease, K21.9 Active esophagitis presence not specified Problem Circulation problem I99.9 Active Problem Bipolar affective disorder, F31.9 Active remission status unspecified Problem Dietary counseling Z71.3 Active Problem Attention deficit disorder, F98.8 Active unspecified hyperactivity presence Problem Morbid obesity with body mass index E66.01 Active (BMI) greater than or equal to 50 Problem History of hypertension Z86.79 Active Problem Memory deficits R41.3 Active Problem Chronic pain syndrome G89.4 Active Problem Dietary surveillance and counseling Z71.3 Active Problem Depression with anxiety F41.8 Active Problem Acute pain of right knee M25.561 Active Problem ADHD (attention deficit F90.2 Active hyperactivity disorder), combined type Problem Left hip pain M25.552 Active Problem History of fall Z91.81 Active Problem Swelling R60.9 Active Problem Allergic arthritis M13.89 Active Problem Lightheadedness R42 Active Problem Environmental allergies Z91.09 Active Problem Vitamin B12 deficiency E53.8 Active Problem Gastroesophageal reflux disease, K21.9 Active esophagitis presence not specified Problem Bipolar 1 disorder F31.9 Active Problem Vitamin D deficiency E55.9 Active Medications Medication Code Code Instructions Start End Status Dosage System Date Date Gabapentin [facility] 49545164628 600 MG Orally Active 1 tablet Three times a day [place] [facility] 25195300746 5-325 MG Orally Active 1 tablet as every 6 hrs needed Pen [place] [facility] 01809668306 32G X 6 MM June 08, Active as directed subcutaneous 2017 (for Saxenda Once daily as Pen) directed Abilify [facility] 88679953580 20 MG Orally Active 1 tablet Once a day Saxenda [facility] 16384266489 18 MG/3ML June 08Oct 06, Active as directed Subcutaneous 2017 2017 Start 0.6 mg once daily x1 week, then increase weekly by 0.6 mg to max of 3 mg/day Omeprazole [facility] 21765529657 40 MG Orally Active 1 capsule Once daily Furosemide [facility] 93902006359 20 MG Orally Active 1 tablet Once a day Klonopin [facility] 07371617543 2 MG Orally PRN Active 1 tablet Wellbutrin XL [facility] 23726946860 150 MG Orally Active 1 tablet in Once a day the morning Wellbutrin XL [facility] 39342961261 300 MG Orally Active 1 tablet in Once a day the morning Macrobid [facility] 18952448494 100 mg Orally Active 1 capsule As directed prn UTI symptoms EpiPen 2-Kit [facility] 98036400714 0.3 MG/0.3ML Active as directed Injection as directed Citalopram [facility] 22617647671 20 MG Orally Active 1 tablet Hydrobromide Once a day Potassium [facility] 56484233541 10 MEQ Orally Active 1 tablet Chloride Jane Twice a day with food ER Zanaflex [facility] 05509518432 4 MG Orally Active 1 tablet as Three times a needed day Singulair [facility] 26006215987 10 MG Orally March Active 1 tablet for Once a day 2017 allergies Vyvanse [facility] 42257915109 70 MG Orally Active 1 capsule in Once a day the morning Results No Known Results Summary Purpose eClinicalWorks Submission
--- OUTSIDE RECORDS SUMMARY | 2019-03-08 08:48 | XMS REPORT ---
:1980 Author Organization eClinicalWorks Care Team Providers Name Role Phone Peewee Lisa Provider Role Unavailable Allergies No Known Allergies Problems Problem Type Condition Code Onset Dates Condition Status Problem Depression with anxiety F41.8 Active Problem Attention deficit disorder, F98.8 Active unspecified hyperactivity presence Problem Bipolar affective disorder, F31.9 Active remission status unspecified Problem Chronic pain syndrome G89.4 Active Problem Dietary counseling Z71.3 Active Problem Acute pain of right knee M25.561 Active Problem ADHD (attention deficit F90.2 Active hyperactivity disorder), combined type Problem Incontinence in female R32 Active Problem Dietary surveillance and counseling Z71.3 Active Problem Environmental allergies Z91.09 Active Problem Lightheadedness R42 Active Problem Kidney stones N20.0 Active Problem Memory deficits R41.3 Active Problem Left hip pain M25.552 Active Problem History of fall Z91.81 Active Problem Morbid obesity with body mass index E66.01 Active (BMI) greater than or equal to 50 Problem History of hypertension Z86.79 Active Problem Bipolar 1 disorder F31.9 Active Problem Vitamin D deficiency E55.9 Active Problem Swelling R60.9 Active Problem Allergic arthritis M13.89 Active Problem Circulation problem I99.9 Active Problem Hypertension, unspecified type I10 Active Problem Vitamin B12 deficiency E53.8 Active Problem Gastroesophageal reflux disease, K21.9 Active esophagitis presence not specified Medications No Known Medications Results No Known Results Summary Purpose eClinicalWorks Submission
--- OUTSIDE RECORDS SUMMARY | 2019-03-08 08:48 | XMS REPORT ---
:1980 Author Organization eClinicalWorks Care Team Providers Name Role Phone Lisa Vides Provider Role Unavailable Allergies, Adverse Reactions, Alerts Substance Reaction Event Type adhesives blisters Non Drug Allergy Problems Problem Type Condition Code Onset Dates Condition Status Assessment Influenza vaccination administered Z23 Active at current visit Problem Hypertension, unspecified type I10 Active Assessment Acute pain of right knee M25.561 Active Problem Circulation problem I99.9 Active Problem Bipolar [...] Start End Status Dosage System Date Date Pen [place] [facility] 88268343804 32G X 6 MM June 08, Active as directed subcutaneous 2017 (for Saxenda Once daily as Pen) directed Potassium [facility] 11884126385 10 MEQ Orally Active 1 tablet Chloride Jane Twice a day with food ER Wellbutrin XL [facility] 84949696996 150 MG Orally Active 1 tablet in Once a day the morning Gabapentin ND 32475924870 600 MG Orally Active 1 tablet Three times a day Citalopram [facility] 76338351004 20 MG Orally Active 1 tablet Hydrobromide Once a day Furosemide [facility] 98604082734 20 MG Orally Active 1 tablet Once a day Zanaflex [facility] 43885765203 4 MG Orally Active 1 tablet as Three times a needed day Vyvanse [facility] 31874807276 70 MG Orally Active 1 capsule in Once a day the morning [place] [facility] 25548693146 5-325 MG Orally Active 1 tablet as every 6 hrs needed Saxenda [facility] 40595791514 18 MG/3ML June 08Oct 06, Active as directed Subcutaneous 2017 2017 Start 0.6 mg once daily x1 week, then increase weekly by 0.6 mg to max of 3 mg/day Abilify [facility] 70423995271 20 MG Orally Active 1 tablet Once a day Klonopin [facility] 79093223329 2 MG Orally PRN Active 1 tablet Macrobid [facility] 02751952706 100 mg Orally Active 1 capsule As directed prn UTI symptoms Wellbutrin XL [facility] 17609287725 300 MG Orally Active 1 tablet in Once a day the morning Omeprazole [facility] 26987004826 40 MG Orally Active 1 capsule Once daily Singulair [facility] 78756049619 10 MG Orally March Active 1 tablet for Once a day 2017 allergies EpiPen 2-Kit [facility] 65828070340 0.3 MG/0.3ML Active as directed Injection as directed Results No Known Results Immunizations Vaccine Administration Date Flucelvax Aug 30, 2018 Summary Purpose eClinicalWorks Submission
--- OUTSIDE RECORDS SUMMARY | 2019-03-08 08:48 | XMS REPORT ---
[...] allergies Z91.09 Active Problem Swelling R60.9 Active Assessment Dietary surveillance and counseling Z71.3 Active Problem Memory deficits R41.3 Active Problem Allergic arthritis M13.89 Active Assessment Morbid obesity E66.01 Active Problem Lightheadedness R42 Active Problem Gastroesophageal reflux disease, K21.9 Active esophagitis presence not specified Medications Medication Code Code Instructions Start End Date Status Dosage System Date Pen [place] [facility] 10111876386 32G X 6 MM June 08, Active as directed subcutaneous 2017 (for Once daily as Saxenda directed Pen) Saxenda [facility] 11320604271 18 MG/3ML June 08, Oct 06, Active as directed Subcutaneous 2017 2017 Start 0.6 mg once daily x1 week, then increase weekly by 0.6 mg to max of 3 mg/day Results No Known Results Summary Purpose eClinicalWorks Submission
--- OUTSIDE RECORDS SUMMARY | 2019-03-08 08:49 | XMS REPORT ---
:1980 Author Organization eClinicalWorks Care Team Providers Name Role Phone Pee[place]e Lisa Provider Role Unavailable Allergies, Adverse Reactions, Alerts Substance Reaction Event Type adhesives blisters Non Drug Allergy Problems Problem Type Condition Code Onset Dates Condition Status Assessment Vitamin D deficiency E55.9 Active Assessment Morbid obesity with body mass index E66.01 Active (BMI) greater than or equal to 50 Assessment Skin lesion L98.9 Active Assessment History of hypertension Z86.79 Active Assessment Elevated liver function tests R94.5 Active Assessment Gastroesophageal reflux disease, K21.9 Active esophagitis presence not specified Problem Bipolar 1 disorder F31.9 Active Problem Vitamin D deficiency E55.9 Active Problem Vitamin B12 deficiency E53.8 Active Problem Bipolar affective disorder, F31.9 Active remission status unspecified Problem ADHD (attention deficit F90.2 Active hyperactivity disorder), combined type Problem Depression with anxiety F41.8 Active Problem Acute pain of right knee M25.561 Active Problem Left hip pain M25.552 Active Problem History of fall Z91.81 Active Problem Elevated liver function tests R94.5 Active Problem Incontinence in female R32 Active Problem Lightheadedness R42 Active Problem Memory deficits R41.3 Active Problem Skin lesion L98.9 Active Problem Chronic pain syndrome G89.4 Active Problem Morbid obesity with body mass index E66.01 Active (BMI) greater than or equal to 50 Problem History of hypertension Z86.79 Active Problem Kidney stones N20.0 Active Problem Dietary surveillance and counseling Z71.3 Active Assessment Bipolar affective disorder, F31.9 Active remission status unspecified Problem Allergic arthritis M13.89 Active Assessment Depression with anxiety F41.8 Active Problem Gastroesophageal reflux disease, K21.9 Active esophagitis presence not specified Problem Environmental allergies Z91.09 Active Problem Swelling R60.9 Active Problem Attention deficit disorder, F98.8 Active unspecified hyperactivity presence Problem Dietary counseling Z71.3 Active Problem Circulation problem I99.9 Active Problem Hypertension, unspecified type I10 Active Medications Medication Code Code Instructions Start End Status Dosage System Date Date Ranitidine HCl NDC 61156852567 150 MG Orally Jan 11, Active 1 tablet at Once a day 2018 bedtime Abilify ND 98613172673 15 MG Orally Active 1 tablet Once a day Pen [place] [facility] 09226863791 32G X 6 MM May Active as directed subcutaneous 11, (for Once daily as 2018 Saxenda directed Pen) BuSpar ND 0 10 MG Orally Active 1 tablet Twice a day Singulair ND 33458659459 10 MG Orally January Active 1 tablet Once a day , for 2018 allergies Klonopin ND 24254583217 2 MG Orally Active 1 tablet PRN Wellbutrin XL ND 92053654973 300 MG Orally Active 1 tablet in Once a day the morning Omeprazole ND 38045539377 40 MG Orally Inactive 1 capsule Once daily Zanaflex ND 27276392383 4 MG Orally Active 1 tablet as Three times a needed day Vyvanse [facility] 33948524163 70 MG Orally Active 1 capsule Once a day in the morning Tizanidine HCl ND 28032930188 4 MG Orally Active 1 tablet as Three times a needed day Potassium ND 35476252589 10 MEQ Orally Active 1 tablet Chloride Jane ER Twice a day with food Furosemide ND 98197238675 20 MG Orally Active 1 tablet Once a day [place] [facility] 71438135675 5-325 MG Active 1 tablet as Orally every 6 needed hrs Lamictal ND 45272440555 25 MG Orally Active 2 tablets Once daily Citalopram ND 22515141378 20 MG Orally Active 1 tablet Hydrobromide Once a day Gabapentin ND 96391043843 600 MG Orally Active 1 tablet Three times a day Wellbutrin XL ND 15380501500 150 MG Orally Active 1 tablet in Once a day the morning Macrobid ND 41009374530 100 mg Orally Active 1 capsule As directed prn UTI symptoms Viibryd ND 52843171560 40 MG Orally Active 1 tablet Once a day with food EpiPen 2-Kit [facility] 76301026352 0.3 MG/0.3ML Active as directed Injection as directed BuPROPion HCl ND 04380953506 75 MG Orally Active 2 tablets Twice a day Nitrofurantoin ND 85659862689 100 mg Orally Dec 14Dec Active 1 capsule Monohyd Macro BID 2019 13, with food 2019 Results No Known Results Summary Purpose eClinicalWorks Submission
--- OUTSIDE RECORDS SUMMARY | 2019-03-08 08:49 | XMS REPORT ---
:1980 Author Organization eClinicalWorks Care Team Providers Name Role Phone CarmelDari ruvalcaba Provider Role Unavailable Allergies, Adverse Reactions, Alerts Substance Reaction Event Type adhesives blisters Non Drug Allergy Problems Problem Type Condition Code Onset Dates Condition Status Assessment Incontinence in female R32 Active Assessment Kidney stones N20.0 Active Assessment History of recurrent UTIs Z87.440 Active Problem Depression with anxiety F41.8 Active [...] Start End Status Dosage System Date Date Omeprazole [facility] 10892327907 40 MG Orally Active 1 capsule Once daily Viibryd [facility] 80709403307 40 MG Orally Active 1 tablet Once a day with food BuPROPion HCl ND 12360710395 75 MG Orally Active 2 tablets Twice a day Macrobid [facility] 34094564256 100 mg Orally Active 1 capsule As directed prn UTI symptoms Gabapentin ND 96609646121 600 MG Orally Active 1 tablet Three times a day Klonopin [facility] 87060485602 2 MG Orally PRN Active 1 tablet Citalopram ND 78636042476 20 MG Orally Active 1 tablet Hydrobromide Once a day BuSpar NDC 0 10 MG Orally Active 1 tablet Twice a day Abilify [facility] 00002802962 20 MG Orally Active 1 tablet Once a day [place] [facility] 22396724357 5-325 MG Orally Active 1 tablet as every 6 hrs needed Potassium ND 21702749156 10 MEQ Orally Active 1 tablet Chloride Jane ER Twice a day with food [place] [facility] 51589233380 32G X 6 MM June 08, Active as directed subcutaneous 2017 (for Once daily as Saxenda directed Pen) Vyvanse [facility] 78904224310 70 MG Orally Active 1 capsule Once a day in the morning Wellbutrin XL [facility] 44687613503 150 MG Orally Active 1 tablet in Once a day the morning Nitrofurantoin [facility] 48997140861 100 mg Orally Dec 14, Dec Active 1 capsule Monohyd Macro BID 2018 13, with food 2019 Singulair [facility] 19337097511 10 MG Orally March Active 1 tablet Once a day 2017 for allergies Wellbutrin XL [facility] 65895533594 300 MG Orally Active 1 tablet in Once a day the morning Furosemide ND 84475459512 20 MG Orally Active 1 tablet Once a day Tizanidine HCl [facility] 73597412207 4 MG Orally Active 1 tablet as Three times a needed day EpiPen 2-Kit [facility] 97808730482 0.3 MG/0.3ML Active as directed Injection as directed Zanaflex [facility] 74058830654 4 MG Orally Active 1 tablet as Three times a needed day Results Name Result Date Reference Range Unit Abnormality Flag URINALYSIS AUTO W/O SCOPE (31704) ----NIT neg 20181214 ----URO 0.2 20181214 ----PROTEIN neg [id number] ----pH 5.5 20181214 ----BLO neg [id number] ----GLUCOSE neg 20181214 ----DANIELLA neg 20181214 ----BILIRUBIN neg 20181214 ----KETONES neg 20181214 ----SPECIFIC GRAVITY >=1.030 20181214 PVR ----PVR 22 [id number] Summary Purpose eClinicalWorks Submission
[2019-03-08 09:48] LABS: Urine Blood NEGATIVE (NEG); Urine Glucose NEGATIVE (NEG); Urine Protein NEGATIVE (NEG); Urine Specific Gravity 1.015 (1.005-1.030); Urine pH 6.5 (5.0-7.0)
[2019-03-08] MEDS ORDERED: KETOROLAC 30 MG/ML INJ ONE (09:52)
--- NOTE | 2019-03-08 10:04 | RAD REPORT ---
EXAM DESCRIPTION: RAD - Lumbar Spine 3 Views - 03/08/2019 9:32 am CLINICAL HISTORY: Back pain FINDINGS: The alignment of the lumbar spine is satisfactory. No fracture or dislocation is seen. Mild spondylosis involves the lumbar spine. Mild scoliosis involves the spine
--- NOTE | 2019-03-08 10:18 | EDPHYS ---
Physician Documentation [facility] Name: Martha Garcia Age: 38 yrs Sex: Female : 1980 Arrival Date: 03/08/2019 Time: 08:29 Bed 20 Private MD: Lisa Vides ED Physician Shukri Aguila HPI: 03/08 09:05 This 38 yrs old Female presents to ER via Ambulatory with complaints of Fall cp Injury, Back Pain. 09:05 Details of fall: The patient fell from an upright position, while walking. cp 09:05 Onset: The symptoms/episode began/occurred 2 day(s) ago. cp 09:05 Associated injuries: The patient sustained injury to the low back, pain. cp 09:05 Severity of symptoms: in the emergency department the symptoms are unchanged, despite cp home interventions. Patient reports trip and fall backward onto bottom 2 days ago. 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 - Social history:: Smoking status: Patient/guardian denies using tobacco. - Ebola Screening: : Patient denies exposure to infectious person Patient denies travel to an Ebola-affected area in the 21 days before illness onset. ROS: 09:10 Constitutional: Negative for body aches, chills, fever, poor PO intake. cp 09:10 Eyes: Negative for injury, pain, redness, and discharge. cp 09:10 Cardiovascular: Negative for chest pain, palpitations. 09:10 Respiratory: Negative for cough, shortness of breath, wheezing. 09:10 Abdomen/GI: Negative for abdominal pain, nausea, vomiting, and diarrhea, black/tarry stool, rectal bleeding, bowel incontinence. 09:10 Back: Positive for pain at rest, pain with movement, of the low back. 09:10 : Negative for urinary symptoms, difficulty urinating, bladder incontinence. 09:10 MS/extremity: Negative for injury or acute deformity, paresthesias. 09:10 Skin: Negative for cellulitis, rash. 09:10 Neuro: Negative for altered mental status, headache, loss of consciousness, syncope, weakness. 09:10 All other systems are negative. Exam: 09:20 Constitutional: The patient appears in no acute distress, alert, awake, non-toxic, well cp developed, well nourished, obese. 09:20 Head/Face: Normocephalic, atraumatic. cp 09:20 Eyes: Periorbital structures: appear normal, Conjunctiva: normal, no exudate, no injection, Sclera: no appreciated abnormality, Lids and lashes: appear normal, bilaterally. 09:20 ENT: External ear(s): are unremarkable, Nose: is normal, Mouth: is normal, Posterior pharynx: Airway: no evidence of obstruction, patent. 09:20 Neck: ROM/movement: is normal, is supple, without pain, no range of motions limitations. 09:20 Chest/axilla: Inspection: normal. 09:20 Cardiovascular: Rate: normal, Rhythm: regular. 09:20 Respiratory: the patient does not display signs of respiratory distress, Respirations: normal, no use of accessory muscles, no splinting, no tachypnea, labored breathing, is not present. 09:20 Abdomen/GI: Exam negative for discomfort, distension, guarding, Inspection: obese 09:20 Back: pain, that is moderate, of the lumbar area, ROM is normal. 09:20 Musculoskeletal/extremity: Exam is negative for calf tenderness, decreased range of motion, edema. 09:20 Neuro: Motor: moves all fours, strength is normal, Sensation: is normal, Gait: is steady, Deep tendon reflexes are 2+ (normal) in the right patellar, right Achilles, left patellar and left Achilles. Vital Signs: 08:41 BP 100 / 64; Pulse 67; Resp 15; Temp 97.8(TE); Pulse Ox 99% on R/A; Weight 149.69 kg; ss Height 5 ft. 7 in. (170.18 cm); Pain 9/10; 08:41 Body Mass Index 51.68 (149.69 kg, 170.18 cm) ss MDM: 08:47 Patient medically screened. cp 10:16 Data reviewed: vital signs, nurses notes, radiologic studies, plain films. cp 10:16 Test interpretation: by ED physician or midlevel provider: plain radiologic studies. cp Counseling: I had a detailed discussion with the patient and/or guardian regarding: the historical points, exam findings, and any diagnostic results supporting the discharge/admit diagnosis, radiology results, to return to the emergency department if symptoms worsen or persist or if there are any questions or concerns that arise at home. Response to treatment: the patient's symptoms have mildly improved after treatment, and as a result, I will discharge patient. 03/08 09:15 Order name: Urine Dipstick--Ancillary (enter results); Complete Time: 09:48 bd 03/08 09:03 Order name: XRAY Lumbar Spine (3 Views); Complete Time: 10:16 cp 03/08 10:16 Interpretation: Report reviewed. cp 03/08 09:03 Order name: Urine Dipstick-Ancillary (obtain specimen); Complete Time: 09:15 cp Administered Medications: 09:44 Drug: TORadol 60 mg Route: IM; Site: left vastus lateralis; sv 10:27 Follow up: Response: No adverse reaction ss Disposition: 03/08/19 10:17 Discharged to Home. Impression: Low back pain - from fall. - Condition is Stable. - Discharge Instructions: Back Pain, Adult, Back Exercises, [place]. - Prescriptions for Naprosyn 500 mg Oral Tablet - take 1 tablet by ORAL route 2 times per day take with food; 20 tablet. Cyclobenzaprine 10 mg Oral Tablet - take 1 tablet by ORAL route every 8 hours As needed no driving while taking medication; 15 tablet. - Work release form, Medication Reconciliation Form, Thank You Letter, Antibiotic Education, Prescription Opioid Use form. - Follow up: Private Physician; When: 2 - 3 days; Reason: Recheck today's complaints. - Problem is new. - Symptoms have improved. Addendum: 03/09/2019 11:05 Co-signature as Attending Physician, Shukri Aguila MD I agree with the assessment and k dr plan of care. Signatures: Dispatcher [employer] Marlin Briceño RN RN sv Rittger, Kevin, MD MD [facility] Sharon Palomares RN RN Oni Reeder PA PA cp Corrections: (The following items were deleted from the chart) 03/08 09:04 09:03 Urine Test ordered. cp sv 10:27 10:17 03/08/2019 10:17 Discharged to Home. Impression: Low back pain - from fall. ss Condition is Stable. Forms are Medication Reconciliation Form, Thank You Letter, Antibiotic Education, Prescription Opioid Use. Follow up: Private Physician; When: 2 - 3 days; Reason: Recheck today's complaints. Problem is new. Symptoms have improved. cp
--- NOTE | 2019-03-08 10:18 | ER ---
Nurse's Notes [facility] Name: Martha Garcia Age: 38 yrs Sex: Female : 1980 Arrival Date: 03/08/2019 Time: 08:29 Bed 20 Private MD: Lisa Vides Diagnosis: Low back pain-from fall Presentation: 03/08 08:39 Presenting complaint: Patient states: L lower back pain after tripping over a rug 2 ss days ago. Pt reports that she has chronic back issues and sees a pain management doctor for it, but when she called their office they said there was nothing they could do for her. Transition of care: patient was not received from another setting of care. Onset of symptoms was March 06, 2019. Risk Assessment: Do you want to hurt yourself or someone else? Patient reports no desire to harm self or others. Initial Sepsis Screen: Does the patient meet any 2 criteria? No. Patient's initial sepsis screen is negative. Does the patient have a suspected source of infection? No. Patient's initial sepsis screen is negative. Care prior to arrival: None. 08:39 Method Of Arrival: Ambulatory ss 08:39 Acuity: MICHAEL 4 ss [employer]ES [employer]: 08:41 LMP N/A - Hysterectomy ss Historical: - Allergies: 08:41 Adhesives; ss - PMHx: 08:41 Chronic pain; Bipolar disorder; ss - PSHx: 08:41 back surgery; R ankle repair; L shoulder repair; Hernia repair; Gastric Bypass; ss Hysterectomy; Cholecystectomy; - Immunization history:: Adult Immunizations up to date. - Social history:: Smoking status: Patient/guardian denies using tobacco. - Ebola Screening: : Patient denies exposure to infectious person Patient denies travel to an Ebola-affected area in the 21 days before illness onset. Screenin:53 Abuse screen: Denies threats or abuse. Denies injuries from another. Nutritional sv screening: No deficits noted. Tuberculosis screening: No symptoms or risk factors identified. Fall Risk None identified. Assessment: 08:40 General: Appears in no apparent distress. uncomfortable, obese, well developed, sv Behavior is calm, cooperative, appropriate for age. Pain: Complains of pain in left low back Pain currently is 9 out of 10 on a pain scale. Neuro: Level of Consciousness is awake, alert, obeys commands, Oriented to person, place, time, situation, Moves all extremities. Full function Gait is steady. Respiratory: Respiratory effort is even, unlabored, Respiratory pattern is regular, symmetrical. Derm: Skin is pink, warm \T\ dry. 09:44 Reassessment: Patient appears in no apparent distress at this time. No changes from sv previously documented assessment. Patient and/or family updated on plan of care and expected duration. Pain level reassessed. Patient is alert, oriented x 3, equal unlabored respirations, skin warm/dry/pink. Vital Signs: 08:41 BP 100 / 64; Pulse 67; Resp 15; Temp 97.8(TE); Pulse Ox 99% on R/A; Weight 149.69 kg; ss Height 5 ft. 7 in. (170.18 cm); Pain 9/10; 08:41 Body Mass Index 51.68 (149.69 kg, 170.18 cm) ss ED Course: 08:29 Patient arrived in ED. mr 08:30 Lisa Vides MD is Private Physician. mr 08:40 Triage completed. ss 08:41 Arm band placed on right wrist. ss 08:47 Oni Lynch PA is PHCP. cp 08:47 Shukri Aguila MD is Attending Physician. cp 08:53 Marlin Handley RN is Primary Nurse. sv 08:53 Patient has correct armband on for positive identification. Bed in low position. Call sv light in reach. Adult w/ patient. Door closed. 09:15 Patient moved to radiology via wheelchair. sv 09:25 X-ray completed. Patient tolerated procedure well. Patient moved back from radiology. ml 09:26 XRAY Lumbar Spine (3 Views) In Process Unspecified. EDMS 09:53 Awaiting radiology results. sv 10:27 No provider procedures requiring assistance completed. Patient did not have IV access ss during this emergency room visit. Administered Medications: 09:44 Drug: TORadol 60 mg Route: IM; Site: left vastus lateralis; sv 10:27 Follow up: Response: No adverse reaction ss Outcome: 10:17 Discharge ordered by . cp 10:27 Discharged to home ambulatory. ss 10:27 Condition: good 10:27 Discharge instructions given to patient, family, Instructed on discharge instructions, follow up and referral plans. medication usage, Demonstrated understanding of instructions, follow-up care, medications. 10:27 Patient left the ED. ss Signatures: Dispatcher [employer] Marlin Briceño RN RN sv Rivera, Mary mr Devendra, Sharon Bueno RN RN ss Page, Corey, YISSEL DEY cp
== END 2019-03-08 10:27 | disposition home or self-care (01) ==
LOC: ER 08:27
DX: M54.5 Low back pain (principal); W18.30XA Fall on same level, unspecified, initial encounter; Y93.01 Activity, walking, marching and hiking; F31.9 Bipolar disorder, unspecified
CPT/HCPCS: 72100; 81003; 96372; 99283

== ENCOUNTER 2019-09-06 16:46 | Emergency (ER) | payer OTHER ==
--- NOTE | 2019-09-06 17:08 | EDPHYS ---
Physician Documentation [facility] Name: Martha aGrcia Age: 39 yrs Sex: Female : 1980 Arrival Date: 09/06/2019 Time: 16:52 Bed 12 Private MD: Jay Germain E ED Physician Oni Siegel HPI: 09/06 17:04 This 39 yrs old Female presents to ER via Ambulatory with complaints of jr8 Toothache. 17:04 Pt had filling done 3 weeks ago and is having a lot of right upper dental pain today. jr8 has dental apt tomorrow morning. Historical: - Allergies: 17:01 Adhesives; aa5 - PMHx: 17:01 Bipolar disorder; Chronic pain; aa5 - PSHx: 17:01 back surgery; R ankle repair; L shoulder repair; Hernia repair; Gastric Bypass; aa5 Hysterectomy; Cholecystectomy; - Immunization history:: Flu vaccine is not up to date. - Social history:: Smoking status: Patient/guardian denies using tobacco. - Ebola Screening: : No symptoms or risks identified at this time. ROS: 17:04 Constitutional: Negative for fever, chills, and weight loss, Eyes: Negative for injury, jr8 pain, redness, and discharge, Neck: Negative for injury, pain, and swelling, Cardiovascular: Negative for chest pain, palpitations, and edema, Respiratory: Negative for shortness of breath, cough, wheezing, and pleuritic chest pain, Abdomen/GI: Negative for abdominal pain, nausea, vomiting, diarrhea, and constipation, MS/Extremity: Negative for injury and deformity, Neuro: Negative for headache, weakness, numbness, tingling, and seizure. 17:04 ENT: Positive for dental pain. Exam: 17:04 Constitutional: This is a well developed, well nourished patient who is awake, alert, jr8 and in no acute distress. Head/Face: Normocephalic, atraumatic. Eyes: Pupils equal round and reactive to light, extra-ocular motions intact. Lids and lashes normal. Conjunctiva and sclera are non-icteric and not injected. Cornea within normal limits. Periorbital areas with no swelling, redness, or edema. Neck: Trachea midline, no thyromegaly or masses palpated, and no cervical lymphadenopathy. Supple, full range of motion without nuchal rigidity, or vertebral point tenderness. No Meningismus. Chest/axilla: Normal chest wall appearance and motion. Nontender with no deformity. No lesions are appreciated. Cardiovascular: Regular rate and rhythm with a normal S1 and S2. No gallops, murmurs, or rubs. Normal PMI, no JVD. No pulse deficits. Respiratory: Lungs have equal breath sounds bilaterally, clear to auscultation and percussion. No rales, rhonchi or wheezes noted. No increased work of breathing, no retractions or nasal flaring. Abdomen/GI: Soft, non-tender, with normal bowel sounds. No distension or tympany. No guarding or rebound. No evidence of tenderness throughout. 17:04 ENT: Dental exam: abscess, is not appreciated, cellulitis, is not appreciated, dental caries, that is mild, gum swelling, that is mild, pain, that is moderate, specifically in the upper right first molar (#3). Vital Signs: 17:01 BP 147 / 87; Pulse 60; Resp 16 S; Temp 98.9(O); Pulse Ox 100% on R/A; aa5 MDM: 17:03 Patient medically screened. [facility] 17:05 Data reviewed: vital signs, nurses notes, and as a result, I will discharge patient. jr8 Data interpreted: Pulse oximetry: on room air is 100 %. Interpretation: normal. Counseling: I had a detailed discussion with the patient and/or guardian regarding: the historical points, exam findings, and any diagnostic results supporting the discharge/admit diagnosis. ED course: Pt with dental pain has an apt with dentist at 1000am but could not longer tolerate the pain. Administered Medications: 17:10 Drug: [place] (7.5 mg-325 mg) 1 tabs Route: PO; ss 17:13 Follow up: Response: Medication administered at discharge. Disposition: 09/07 07:41 Co-signature as Attending Physician, Oni Siegel MD I agree with the assessment and ramos plan of care. Disposition: 09/06/19 17:07 Discharged to Home. Impression: Dental caries. - Condition is Stable. - Discharge Instructions: Dental Caries, Adult, Dental Pain. - Prescriptions for Amoxicillin 875 mg Oral Tablet - take 1 tablet by ORAL route every 12 hours for 7 days; 14 tablet. - Medication Reconciliation Form, Thank You Letter, Antibiotic Education form. - Follow up: Private Physician; When: 1 - 2 days; Reason: Recheck today's complaints, Re-evaluation by your physician. - Problem is new. - Symptoms are unchanged. - Notes: Take Ibuprofen 400mg and tylenol as needed at home for pain and keep your apoointment tomorrow morning with your dentist. Signatures: Oni Siegel MD MD cha Calderon, Audri RN RN aa5 Sharon Palomares RN RN Yang Ortega PA PA jr8 Corrections: (The following items were deleted from the chart) 09/06 17:16 17:07 09/06/2019 17:07 Discharged to Home. Impression: Dental caries. Condition is ss Stable. Forms are Medication Reconciliation Form, Thank You Letter, Antibiotic Education, Prescription Opioid Use. Follow up: Private Physician; When: 1 - 2 days; Reason: Recheck today's complaints, Re-evaluation by your physician. Problem is new. Symptoms are unchanged. jr8
--- NOTE | 2019-09-06 17:08 | ER ---
Nurse's Notes [facility] Name: Martha Garcia Age: 39 yrs Sex: Female : 1980 Arrival Date: 09/06/2019 Time: 16:52 Bed 12 Private MD: Jay Germain E Diagnosis: Dental caries Presentation: 09/06 16:59 Presenting complaint: Patient states: upper toothache that began yesterday. Pt states aa5 "they did a filling on that tooth about 3 weeks ago". Transition of care: patient was not received from another setting of care. Onset of symptoms was August 2019. Risk Assessment: Do you want to hurt yourself or someone else?. Initial Sepsis Screen: Does the patient meet any 2 criteria? No. Patient's initial sepsis screen is negative. Does the patient have a suspected source of infection? No. Patient's initial sepsis screen is negative. Care prior to arrival: None. 16:59 Acuity: MICHAEL 5 aa5 16:59 Method Of Arrival: Ambulatory aa5 Historical: - Allergies: 17:01 Adhesives; aa5 - PMHx: 17:01 Bipolar disorder; Chronic pain; aa5 - PSHx: 17:01 back surgery; R ankle repair; L shoulder repair; Hernia repair; Gastric Bypass; aa5 Hysterectomy; Cholecystectomy; - Immunization history:: Flu vaccine is not up to date. - Social history:: Smoking status: Patient/guardian denies using tobacco. - Ebola Screening: : No symptoms or risks identified at this time. Screenin:14 Abuse screen: Denies threats or abuse. Denies injuries from another. Nutritional ss screening: No deficits noted. Tuberculosis screening: Never had TB. Fall Risk None identified. Assessment: 17:14 General: Appears in no apparent distress. comfortable, Behavior is calm, cooperative. ss Pain: Complains of pain in upper right first molar (#3) Pain currently is 8 out of 10 on a pain scale. Quality of pain is described as aching. Neuro: Level of Consciousness is awake, alert, obeys commands. Respiratory: Airway is patent Respiratory effort is even, unlabored, Respiratory pattern is regular, symmetrical. EENT: Oral mucosa is moist. Poor dentition noted. Derm: Skin is pink, warm \\T\\ dry. normal. Musculoskeletal: Circulation, motion, and sensation intact. Range of motion: intact in all extremities, Swelling absent. Vital Signs: 17:01 BP 147 / 87; Pulse 60; Resp 16 S; Temp 98.9(O); Pulse Ox 100% on R/A; aa5 ED Course: 16:52 Patient arrived in ED. am2 16:52 Jay Germain MD is Private Physician. am2 16:59 Arm band placed on. aa5 17:00 Triage completed. aa5 17:03 [facility]. jr 17:03 Oni Siegel MD is Attending Physician. jr 17:13 Sharon Palomares, ARNOL is Primary Nurse. ss 17:14 Patient has correct armband on for positive identification. Bed in low position. Call ss light in reach. 17:15 No provider procedures requiring assistance completed. Patient did not have IV access ss during this emergency room visit. Administered Medications: 17:10 Drug: [place] (7.5 mg-325 mg) 1 tabs Route: PO; ss 17:13 Follow up: Response: Medication administered at discharge. ss Outcome: 17:07 Discharge ordered by . [email or web address] 17:15 Discharged to home ambulatory. ss 17:15 Condition: good 17:15 Discharge instructions given to patient, Instructed on discharge instructions, follow up and referral plans. medication usage, Demonstrated understanding of instructions, follow-up care, medications, Prescriptions given X 1. 17:16 Patient left the ED. ss Signatures: Mildred Metzger, RN RN [facility] Sharon Palomares RN RN Yang Segundo PA PA jr8 Emily Castro am2 Corrections: (The following items were deleted from the chart) 17:02 17:01 Pulse 60bpm; Resp 16bpm; Spontaneous; Pulse Ox 100% RA; Temp 98.9F Oral; aa5 aa5
[2019-09-06] MEDS ORDERED: HYDROCODONE/APAP 7.5/325 MG TAB ONE (17:09)
[2019-09-06 17:20] VITALS: BP 147/87; TEMP 98.9; O2SAT 100
== END 2019-09-06 17:16 | disposition home or self-care (01) ==
LOC: ER 16:46
DX: K02.9 Dental caries, unspecified (principal)
CPT/HCPCS: 99283

== ENCOUNTER 2020-04-15 08:53 | Day surgery (SDC) | payer OTHER ==
[2020-04-15 09:29] LABS: MPV 10.1 fL (7.6-11.3)
--- OUTSIDE RECORDS SUMMARY | 2020-04-15 09:36 | XMS REPORT ---
:1980 Author Organization eClinicalWorks Care Team Providers Name Role Phone Lisa Vides Provider Role Unavailable Allergies No Known Allergies Problems Problem Type Condition Code Onset Dates Condition Statu s Problem Memory deficits R41.3 Active Problem Bipolar 1 disorder F31.9 Active Problem Lightheadedness R42 Active Problem Gastroesophageal reflux disease, K21.9 Active esophagitis presence not specified Problem Circulation problem I99.9 Active Problem ADHD (attention deficit F90.2 Acti ve hyperactivity disorder), combined type Problem Vitamin D deficiency E55.9 Active Problem Morbid obesity E66.01 Active Problem Hypertension, unspecified type I10 Active Problem Vitamin B12 deficiency E53.8 Activ e Problem Swelling R60.9 Active Problem Allergic arthritis M13.89 Active Assessment ADHD (attention deficit F90.2 Acti ve hyperactivity disorder), combined type Problem Depression with anxiety F41.8 Acti ve Problem Environmental allergies Z91.09 Acti ve Problem Chronic pain syndrome G89.4 Active Medications No Known Medications Results No Known Results Summary Purpose eClinicalWorks Submission
--- OUTSIDE RECORDS SUMMARY | 2020-04-15 09:36 | XMS REPORT ---
:1980 Author Organization [employer] Care Team Providers Name Role Phone Lisa Vides Provider Role Unavailable Allergies No Known Allergies Problems Problem Type Condition Code Onset Dates Condition Statu s Problem Environmental allergies Z91.09 Acti ve Problem Allergic arthritis M13.89 Active Problem Swelling R60.9 Active Problem History of fall Z91.81 Active Problem Acute pain of right knee M25.561 Act maryann Problem Left hip pain M25.552 Active Problem Circulation problem I99.9 Active Problem Hypertension, unspecified type I10 Active Problem ADHD (attention deficit F90.2 Acti ve hyperactivity disorder), combined type Problem Gastroesophageal reflux disease, K21.9 Active esophagitis presence not specified Problem Bipolar 1 disorder F31.9 Active Problem Morbid obesity E66.01 Active Problem Depression with anxiety F41.8 Acti ve Problem Chronic pain syndrome G89.4 Active Problem Vitamin D deficiency E55.9 Active Problem Memory deficits R41.3 Active Problem Vitamin B12 deficiency E53.8 Activ e Problem Lightheadedness R42 Active Medications No Known Medications Results No Known Results Summary Purpose eClinicalWorks Submission
--- OUTSIDE RECORDS SUMMARY | 2020-04-15 09:36 | XMS REPORT ---
:1980 Author Organization [employer] Care Team Providers Name Role Phone Lisa Vides Provider Role Unavailable Allergies No Known Allergies Problems Problem Type Condition Code Onset Dates Condition Statu s Problem Swelling R60.9 Active Problem Depression with anxiety F41.8 Acti ve Problem Allergic arthritis M13.89 Active Problem Vitamin D deficiency E55.9 Active Problem Morbid obesity E66.01 Active Problem Vitamin B12 deficiency E53.8 Activ e Problem Memory deficits R41.3 Active Problem Chronic pain syndrome G89.4 Active Problem Bipolar 1 disorder F31.9 Active Problem Lightheadedness R42 Active Problem Hypertension, unspecified type I10 Active Problem Circulation problem I99.9 Active Problem Gastroesophageal reflux disease, K21.9 Active esophagitis presence not specified Problem Environmental allergies Z91.09 Acti ve Medications No Known Medications Results No Known Results Summary Purpose [employer] Submission
--- OUTSIDE RECORDS SUMMARY | 2020-04-15 09:36 | XMS REPORT ---
[...] pain of right knee M25.561 Act maryann Assessment Vitamin B12 deficiency E53.8 Activ e Assessment Vitamin D deficiency E55.9 Active Problem Left hip pain M25.552 Active Problem Circulation problem I99.9 Active Problem Hypertension, unspecified type I10 Active Problem ADHD (attention deficit F90.2 Acti ve hyperactivity disorder), combined type Problem Gastroesophageal reflux disease, K21.9 Active esophagitis presence not specified Problem Bipolar 1 disorder F31.9 Active Problem Morbid obesity E66.01 Active Assessment Acute pain of right knee M25.561 Act maryann Assessment Left hip pain M25.552 Active Problem Depression with anxiety F41.8 Acti ve Problem Chronic pain syndrome G89.4 Active Problem Vitamin D deficiency E55.9 Active Problem Memory deficits R41.3 Active Problem Vitamin B12 deficiency E53.8 Activ e Problem Lightheadedness R42 Active Medications Medication Code Code Instructions Start End Status Dosage System Date Date Tramadol HCl [facility] 79742935153 50 MG Orally March 31April Active 1 tablet as Twice daily 2017 12, needed for 2018 pain Robaxin-750 [facility] 98656712285 750 MG Orally March 31May Active 1 tablet as Twice daily 2017 12, needed for 2018 muscle cramps/pain Topamax [facility] 23260694883 100 mg Orally Active 1 tabl et Twice a day Omeprazole [facility] 77129231197 40 MG Orally Active 1 ca psule twice daily [place] [facility] 06910342516 5-325 MG Orally Active 1 ta blet as every 6 hrs needed Klonopin [facility] 58947820830 2 MG Orally PRN Active 1 t ablet Vyvanse [facility] 19674475320 70 MG Orally Active 1 capsu le in Once a day the morning Vitamin B12 [facility] 73650955344 1000 MCG Orally March 31Jun 29, Active 1 tablet Once a day 2017 2017 Abilify [facility] 22218592561 20 MG Orally Active 1 table t Once a day Gabapentin ND 05375482822 600 MG Orally Active 1 t ablet Three times a day Potassium [facility] 04253712590 10 MEQ Orally Active 1 ta blet Chloride Jane Twice a day with f ood ER Furosemide ND 15015593464 20 MG Orally Active 1 ta blet Once a day Citalopram ND 81876632978 20 MG Orally Active 1 ta blet Hydrobromide Once a day Zanaflex [facility] 72670857981 4 MG Orally Active 1 table t as Three times a needed day EpiPen 2-Kit [facility] 59787790754 0.3 MG/0.3ML Active as directed Injection as directed Singulair [facility] 95494345400 10 MG Orally January Active 1 tab let for Once a day 2017 allergies Wellbutrin XL [facility] 00448722197 150 MG Orally Active 1 tablet in Once a day the morning Vitamin D3 [facility] 84141361180 2000 UNIT March 31March 31, Active 2 Orally Once a 2017 2017 capsules-- ot day c Macrobid [facility] 35185225102 100 mg Orally Active 1 cap sivakumar As directed prn UTI symptoms Zantac 150 [facility] 42242597895 150 MG Orally Active 1 t ablet Maximum Twice a day Strength Wellbutrin XL [facility] 87662514541 300 MG Orally Active 1 tablet in Once a day the morning Results No Known Results Summary Purpose eClinicalWorks Submission
--- OUTSIDE RECORDS SUMMARY | 2020-04-15 09:36 | XMS REPORT | Clinical Summary ---
:1980 Author Organization [facility] Address [address] [place] [address] Care Team Providers Name Role Phone Aleyda Vides MD Primary Care Provider Allergies Active Allergy Reactions Severity Noted Date Comments Adhesive Other (See Comments) 09/16/2014 Even pa per tape causes blisters Medications Medication Sig Dispensed Refills Start Date End Date Status cholecalciferol, vitamin Take 1,000 0 Active D3, 1,000 unit capsule Units by mouth daily. lisdexamfetamine (VYVANSE) Take 70 mg by 0 Active 70 MG capsule mouth every morning. TiZANidine (ZANAFLEX) 4 MG Take 4 mg by 0 Active capsule mouth 3 (three) times daily. busPIRone (BUSPAR) 10 MG Take 10 mg by 0 Active tablet mouth 3 (three) times daily. omeprazole (PRILOSEC) 40 Take 40 mg by 0 Active MG capsule mouth daily. buPROPion (WELLBUTRIN XL) Take 450 mg by 0 Active 300 MG 24 hr tablet mouth daily. DULoxetine (CYMBALTA) 20 Take 20 mg by 0 Active MG capsule mouth daily. ARIPiprazole (ABILIFY) 20 Take 20 mg by 0 Active MG tablet mouth daily. montelukast (SINGULAIR) 10 Take 10 mg by 0 Active mg tablet mouth nightly. propranolol (INDERAL) 10 Take 10 mg by 0 Active MG tablet mouth 3 (three) times daily. gabapentin (NEURONTIN) 600 Take 600 mg by 0 Active MG tablet mouth 3 (three) times daily. Active Problems Problem Noted Date Lumbar radiculopathy 08/17/2018 HNP (herniated nucleus pulposus), lumbar 08/17/2018 Social History Tobacco Use Types Packs/Day Years Used Date Former Smoker 1 10 Smokeless Tobacco: Never Used Comments: quit 2010 Alcohol Use Drinks/Week oz/Week Comments No Sex Assigned at Date Recorded Not on file Job Start Date Occupation Industry Not on file Not on file Not on file Travel History Travel Start Travel End No recent travel history available. Last Filed Vital Signs Not on file Plan of Treatment Not on file Implants Implanted Type Area In[employer] Device Shelf Model / Identifier Expiration Serial / Date Lot Derick [facility] Full Strlprep 10ml [id number] - [id number] Cement/F Lef t: CANO:BIOSCI 01/10/2020 [id number] / Implanted: Qty: 1 on 08/17/2018 by Hector Barroso MD illecam/[employer]ede Sp[employer] / hesive Lumbar [id number] Results Not on fileafter 04/15/2019 Insurance Payer Benefit Plan / Group Subscriber ID Type Phone A ofelia MATOS xxxxxxxxxxx Advance Directives For more information, please contact:[address] [phone] Code Status Date Activated Date Inactivated Comments Full Code 08/17/2018 6:35 AM 08/17/2018 5:29 PM This code status was determined by: Patient
--- OUTSIDE RECORDS SUMMARY | 2020-04-15 09:37 | XMS REPORT ---
:1980 Author Organization eClinicalWorks Care Team Providers Name Role Phone Lisa Vides Provider Role Unavailable Allergies, Adverse Reactions, Alerts Substance Reaction Event Type adhesives blisters Non Drug Allergy Problems Problem Type Condition Code Onset Dates Condition Statu s Assessment Bipolar affective disorder, F31.9 Active remission status unspecified Assessment Attention deficit disorder, F98.8 Active unspecified hyperactivity presence Assessment Depression with anxiety F41.8 Acti ve Assessment Chronic pain syndrome G89.4 Active Assessment Environmental allergies Z91.09 Acti ve Assessment Morbid obesity E66.01 Active Assessment Dietary counseling Z71.3 Active Assessment Vitamin D deficiency E55.9 Active Problem Swelling R60.9 Active Assessment Vitamin B12 deficiency E53.8 Activ e Problem Allergic arthritis M13.89 Active Assessment Gastroesophageal reflux disease, K21.9 Active esophagitis presence not specified Problem Gastroesophageal reflux disease, K21.9 Active esophagitis presence not specified Problem Hypertension, unspecified type I10 Active Problem Circulation problem I99.9 Active Problem History of fall Z91.81 Active Problem Acute pain of right knee M25.561 Act maryann Problem Bipolar 1 disorder F31.9 Active Problem Left hip pain M25.552 Active Assessment Hypertension, unspecified type I10 Active Problem Dietary counseling Z71.3 Active Problem Attention deficit disorder, F98.8 Active unspecified hyperactivity presence Problem ADHD (attention deficit F90.2 Acti ve hyperactivity disorder), combined type Problem Bipolar affective disorder, F31.9 Active remission status unspecified Problem Vitamin B12 deficiency E53.8 Activ e Problem Depression with anxiety F41.8 Acti ve Problem Morbid obesity E66.01 Active Problem Vitamin D deficiency E55.9 Active Problem Lightheadedness R42 Active Problem Environmental allergies Z91.09 Acti ve Problem Chronic pain syndrome G89.4 Active Problem Memory deficits R41.3 Active Medications Medication Code Code Instructions Start End Status Dosage System Date Date Wellbutrin XL [facility] 05361290970 150 MG Orally Active 1 tablet in Once a day the morning Abilify [facility] 28957631128 20 MG Orally Active 1 table t Once a day Furosemide [facility] 73019991209 20 MG Orally Active 1 ta blet Once a day Macrobid [facility] 93848806571 100 mg Orally Active 1 cap sivakumar As directed prn UTI symptoms Potassium [facility] 57999393467 10 MEQ Orally Active 1 ta blet Chloride Jane Twice a day with f ood ER Zanaflex [facility] 40969441480 4 MG Orally Active 1 table t as Three times a needed day [place] [facility] 23178714782 5-325 MG Orally Active 1 ta blet as every [address] [facility] 27392849345 2 MG Orally PRN Active 1 t ablet Robaxin-750 [facility] 98099810457 750 MG Orally March 31May Active 1 tablet as Twice daily 2017 needed for 2017 muscle cramps/pain EpiPen 2-Kit [facility] 33122379888 0.3 MG/0.3ML Active as directed Injection as directed Singulair [facility] 31360224591 10 MG Orally March Active 1 tab let Once a day [address] [facility] 15625566647 40 MG Orally Active 1 ca psule twice daily Gabapentin [facility] 76662398376 600 MG Orally Active 1 t ablet Three times a day Wellbutrin XL [facility] 95403558285 300 MG Orally Active 1 tablet in Once a day the morning Zantac [address] [facility] 96978552313 150 MG Orally Inactive 1 tablet Maximum Twice a day Strength Vitamin B12 [facility] 10704428004 1000 MCG Orally March 31Jun Active 1 tablet Once a day [address] [facility] 96764880813 20 MG Orally Active 1 ta blet Hydrobromide Once a day Vyvanse [facility] 25016412564 70 MG Orally Active 1 capsu le Once a day in the morning Topamax [facility] 44065978032 100 mg Orally Inactive 1 tab let Twice a day Results No Known Results Summary Purpose eClinicalWorks Submission
--- OUTSIDE RECORDS SUMMARY | 2020-04-15 09:37 | XMS REPORT ---
:1980 Author Organization [facility] t Address [address] [place] [address] Care Team Providers Name Role Phone Onesimo FERGUSON Attending Clinician Doctor Unassigned, Name Attending Clinician Unavailable Magaly Marie MD Attending Clinician ZELALEM BARROSO Attending Clinician Unavailable ZELALEM BARROSO Admitting Clinician Unavailable Problems Condition Condition Condition Status Onset Resolution Last Treating Co mments Source Name Details Category Date Date Treatment Clinician Date Swelling Swelling Problem [facility] Depression Depression Diagnosis Active [facility] with with [facility] anxiety anxiety [facility] Allergic Allergic Problem Active [facility] arthritis arthritis [facility] - [facility] Vitamin D Vitamin D Problem Active [facility] deficiency deficiency Kirstin kes - [facility] Morbid Morbid Problem Active [facility] obesity obesity [facility] - with body with body [place] rosa mass index mass index l (BMI) (BMI) [facility] greater greater ent than or than or Clinics equal to equal to 50 50 Vitamin Vitamin Problem Active [facility] B12 B12 [facility] - deficiency deficiency Me moria l [facility] Memory Memory Problem Active [facility] deficits deficits [facility] Chronic Chronic Problem Active [facility] pain pain [facility] - syndrome syndrome [facility] a [facility] Bipolar Bipolar Diagnosis Active [facility] affective affective Luke s - disorder, disorder, Issac rosa remission remission l status status Outpati unspecifie unspecifie en t d d Clinics Lightheade Lightheade Problem Active [facility] dness dness [facility] Hypertensi Hypertensi Problem Active [facility] on, on, Lukes - unspecifie unspecifie Me moria d type d type l [facility] Circulatio Circulatio Problem Active [facility] n problem n problem Luke s - Memoria [facility] Gastroesop Gastroesop Problem Active [facility] hageal hageal [facility]ukes - reflux reflux Memoria disease, disease, l esophagiti esophagiti Ou tpati s presence s presence en t not not Clinics specified specified Environmen Environmen Problem Active [facility] meenu meenu [facility] - allergies allergies Issac rosa l [facility] ADHD ADHD Problem Active [facility] (attention (attention Kirstin kes - deficit deficit Memoria hyperactiv hyperactiv l ity ity [facility] disorder), disorder), en t combined combined Clinic s type type History of History of Problem Active [facility] fall fall [facility] Acute pain Acute pain Problem Active [facility] of right of right [facility] - knee knee Memoria [facility] ent [facility] Left hip Left hip Problem Active [facility] pain pain [facility] Attention Attention Problem Active [facility] deficit deficit [facility] - disorder, disorder, [place] rosa unspecifie unspecifie l d d [facility] hyperactiv hyperactiv en t ity ity Clinics presence presence Dietary Dietary Problem Active [facility] counseling counseling Kirstin kes - Memoria [facility] History of History of Problem Active [facility] hypertensi hypertensi Kirstin kes - on on Memoria [facility] Incontinen Incontinen Problem Active [facility] ce in ce in [facility] - female female Memoria [facility] ent [facility] Kidney Kidney Problem Active [facility] stones stones [facility] Skin Skin Problem Active [facility] lesion lesion [facility] Elevated Elevated Problem Active [facility] liver liver [facility] Allergies, Adverse Reactions, Alerts Allergy Allergy Status Severity Reaction(s) Onset Inactive Treating Comm ents Source Name Type Date Date Clinician adhesive Adverse Active blisters [facility] Reaction [facility] Medications Ordered Filled Start Stop Current Ordering Indication Dosage Frequency Signature Comments Components Source Medication Medication Date Date Medication? Clinician (SIG) Name Name Ranitidine Ranitidine 2019-0 Yes Lisa [address] [facility] HCl HCl 2-13 [place] at bedtime Luke s - 00:00: Memoria 00 l Outpat[facility] ent Clinics Nitrofurant Nitrofurant 2018- 2019- No Lisa [address] [facility] oin Monohyd oin Monohyd 1-16 02-13 [place] with food [facility] - Macro Macro 00:00: 00:00 Memoria 00 :00 l Outpati ent Clinics [place] Yes Lisa as [facility] 7-11 [place] directed [facility] - 00:00: (for Memoria 00 Saxenda l Pen) Outpati ent Clinics Singulair Singulair Yes Lisa [address] [facility] 3-29 [place] for [facility] - 00:00: allergies Memoria 00 l [facility] ent Clinics Gabapentin Gabapentin Yes Lisa [address] [facility] [place] [facility] Quinebaug Quinebaug Yes Lisa [address] [facility] Mill[place] as needed [facility] Omeprazole Omeprazole Yes Lisa [address] [facility] [place] [facility] Furosemide Furosemide Yes Lisa [address] [facility] [place] [facility] Klonopin Klonopin Yes Lisa [address] [place] [facility] Wellbutrin Wellbutrin Yes Lisa [address] [facility] XL XL [place] in the [facility] - morning [facility] Wellbutrin Wellbutrin Yes Lisa [address] [facility] XL XL [place] in the [facility] - morning [facility] Macrobid Macrobid Yes Lisa [address] [place] prn UTI [facility] - symptoms [facility] EpiPen EpiPen Yes Lisa as [facility] 2-Kit 2-Kit [place] directed Luke [facility] - [facility] Zanaflex Zanaflex Yes Lisa [address] [place] as needed [facility] Viibryd Viibryd Yes Lisa [address] [facility] [place] with food [facility] BuPROPion BuPROPion Yes Lisa [address] [address] HCl HCl [place] [facility] Citalopram Citalopram Yes Lisa [address] [facility] [address] Hydrobromid Hydrobromid [place] [facility] - e e [facility] BuSpar BuSpar Yes Lisa [address] [place] [facility] ent Clinics Potassium Potassium Yes Lisa [address] [facility] [facility] Chloride Chloride [place] with food [facility] - [facility] Vyvanse Vyvanse Yes Lisa [address] [facility] [place] in the [facility] - morning [facility] Tizanidine Tizanidine Yes Lisa [address] [facility] [address] HCl HCl [place] as needed [facility] ent Clinics Abilify Abilify Yes Lisa [address] [place] [facility] ent Clinics Lamictal Lamictal Yes Lisa [address] [place] [facility] ent Clinics Immunizations Ordered Filled Immunization Date Status Comments Sour e Immunization Name Name Flucelvax Flucelvax 2018-08-[address] [facility] - 00[facility]00 [facility] Procedures This patient has no known procedures. Encounters Start End Encounter Admission Attending Care Care Encounter Source Date/Time Date/Time Type Type Clinicians Facility Department ID 2019-08-03 2019-08-03 Telephone Onesimo [facility] [id number] 00:00:00 00:00:00 Savage Suarez [id number] [place] [id number] [facility] [id number] [address] 2019-08-03 2019-08-03 Orders Doctor JACKIE [id number] 00:00:00 00:00:00 Only Unassigned, ENEIDA [id number] Gaylord [facility] [id number] 2019-06-26 2019-06-26 Telephone Onesiom KSDOMITILA [id number] 00:00:00 00:00:00 Savage Suarez [id number] [place] [id number] Professio [id number] [address] 2019-06-25 2019-06-25 Urgent Frank KSDOMITILA [id number] 15:43:05 15:58:05 Care [facility] [id number] Surgical [id number] Specialti [id number] Caitlin Suarez 2019-05-30 2019-06-24 Office Onesimo [facility] [id number] 15:01:31 13:03:08 Visit Savage Suarez [id number] [place] [id number] Professio [id number] critical access hospital9 [facility] 2019-01-11 2019-01-11 [facility] [id number] 10:30:00 10:30:00 t [facility] Medicine Outpati ent Clinics 2018-12-14 2018-12-14 [facility] [id number] 09:30:00 09:30:00 t Specialty/U Kirstin kes - Specialty rology [facility] a /Urology [facility] l Clinic Outpati ent Clinics 2018-12-13 2018-12-13 [facility] [id number] 08:22:00 08:22:00 t [facility] Medicine Outpati ent Clinics 2018-12-12 2018-12-12 [facility] [id number] 14:09:00 14:09:00 t [facility] Medicine Outpati ent Clinics 2018-12-09 2018-12-09 [facility] [id number] 10:07:00 10:07:00 t [facility] Medicine Medicine Outpati ent Clinics 2018-08-30 2018-08-30 [facility] [id number] 09:15:00 09:15:00 t [facility] Medicine Outpati ent Clinics 2018-08-23 2018-08-23 [facility] [id number] 11:00:00 11:00:00 t [facility] Medicine Outpati ent Clinics 2018-07-28 2018-07-28 [facility] [id number] 08:25:00 08:25:00 t [facility] Medicine Outpati ent Clinics 2018-06-29 2018-06-29 [facility] [id number] 15:34:00 15:34:00 t [facility] Medicine Outpati ent Clinics 2018-06-17 2018-06-17 [facility] [id number] 13:02:00 13:02:00 t [facility] Medicine Outpati ent Clinics 2018-06-08 2018-06-08 [facility] [id number] 15:35:00 15:35:00 t [facility] Medicine Outpati ent Clinics 2018-05-23 2018-05-23 [facility] [id number] 08:45:00 08:45:00 t [facility] Medicine Outpati ent Clinics 2018-05-10 2018-05-10 [facility] [id number] 11:29:00 11:29:00 t [facility] Medicine Outpati ent Clinics 2018-03-31 2018-03-31 [facility] [id number] 13:00:00 13:00:00 [facility] Medicine Outpati ent Clinics 2018-03-16 2018-03-16 [facility] [id number] 11:07:00 11:07:00 t [facility] Medicine Outpati ent Clinics 2018-03-07 2018-03-07 [facility] [id number] 14:44:00 14:44:00 t [facility] Medicine Outpati ent Clinics Results Test Description Test Time Test Comments Results Result Sourc e Comments [place], 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 UE EXAM 2018-08-22 Surgical Pathology Report 13:20:00 Case: [id number] Authorizing Provider: Hector Barroso MD Collected: 08/17/2018 1142 Ordering Location: [facility] PERIOPERATIVE Received: 08/17/2018 1146 SERVICES Pathologist: Phoenix George MD Specimen: Disc L4-5 VERTEBRAL COLUMN, INTERVERTEBRAL DISC, L4-5, DISCECTOMY:FRAGMENTS OF FIBROCARTILAGE WITH MILD DEGENERATIVE CHANGES Signing Pathologist Direct Phone Line: [phone] y signed by Phoenix George MD on 08/22/2018 at 1:20 [id number]; [id number] lumbar radiculopathy, herniated nucleus pulposus of the lumbarDisc L4-5The specimen is received in saline labeled with the patient's information and labeled "disc L4-5" and consists of a small segment of palafox-pink fibrocartilaginous tissue measuring 0.5 cm in greatest dimensio submitted entirely A1 for light decalcification. CG/pl Performed NEEDLE EMG, 2 2018-08-19 INTRAOPERATIVE MONITORING EXTREMITY 12:43:00 REPORT Patient Name: Jana Hubbard [facility] Surgery Date: 08/17/2018 [place] Pro: [id number] Monitoring began at 0935 and ended at [...] by the monitoring technologist. Free-running EMG of L2-I9otnmvihdni muscle groups was monitored continuously throughout the operative procedure withno sustained neurotonic discharges seen at baselines. Surgeon aware. Sporadic EMG firing waspresent during procedure but at closing all EMG was quiet and stable with baselines. Surgeonaware of all responses during the procedure and at closing of case. Conclusion:Absence of sustained neurotonic discharges on free-running EMG suggests that the nerve rootsmonitored remained undisturbed. Jese Hilton M.D., FACNS, FAAN, FAESProfessor of Neurology, Sutter Coast HospitalDirector, [facility] Epilepsy [facility], Maninder [place] Neurophysiology [id number] [employer] [place] 2018-08-17 Reason for FINAL REPORT PATIENT ID: OR/30 MINUTE 11:16:00 exam:->back [id number] Lumbar spine INCREMENTS pain one lateral fluoroscopic image. Fluoroscopy time 13.2 seconds. Fluoroscopy was not performed by the undersigned. Refer to procedure notes for diagnostic and therapeutic detail. Marker projects L4/5 assuming five lumbar type vertebrae. Report called to Dr. Barroso who was in agreement. Signed: Jackie Gaines Verified Date/Time: 08/17/2018 11:16:40 Reading Location: [facility] Radiology Reading Room [employer] [place] 2018-08-17 Reason for FINAL REPORT PATIENT ID: OR/30 MINUTE 10:43:00 exam:->back [id number] Fluoroscopy. INCREMENTS pain History: Intraoperative. Findings: Radiologist was not present for the exam. Fluoroscopy was not performed by the undersigned. A single image from intraoperative fluoroscopy demonstrates lateral view of the lumbar spine with localization at the L5 level. Finds were discussed with the operating room staff at time of interpretation. IMPRESSION:Intraoperative exam as described above. Signed: Brittani Gee Verified Date/Time: 08/17/2018 10:43:15 Reading Location: [address] Radiology Reading Room C METABOLIC PANEL 2018-08-02 14:44:00 Test Item Value Reference Range Interpretation Comme nts SODIUM (BEAKER) (test code 141 meq/L 136-145 = 381) POTASSIUM (BEAKER) (test 4.3 meq/L 3.5-5.1 code = 379) CHLORIDE (BEAKER) (test 107 meq/L 98-107 code = 382) CO2 (BEAKER) (test code = 26 meq/L 22-29 355) BLOOD UREA NITROGEN 11 mg/dL 7-21 (BEAKER) (test code = 354) CREATININE (BEAKER) (test 0.86 mg/dL 0.57-1.25 code = 358) GLUCOSE RANDOM (BEAKER) 80 mg/dL 70-105 (test code = 652) CALCIUM (BEAKER) (test code 9.5 mg/dL 8.4-10.2 = 697) EGFR (BEAKER) (test code = 75 mL/min/1.73 sq m ESTIMATED GFR IS NOT 1092) ACCURATE CRE ATININE CLEARANCE IN [place] EDICTING GLOMERULAR FILT RATION RATE. ESTIMATED GFR IS NOT APPLICABLE FOR DIALYSIS PATIENTS. URINALYSIS W/ [id number] 14:09:00 Test Item Value Reference Range Interpretation Comments COLOR (BEAKER) (test code = 470) Yellow CLARITY (BEAKER) (test code = 469) Clear SPECIFIC GRAVITY UA (BEAKER) (test 1.020 1.001-1.035 code = 468) PH UA (BEAKER) (test code = 467) 7.0 5.0-8.0 PROTEIN UA (BEAKER) (test code = Negative Negative 464) GLUCOSE UA (BEAKER) (test code = Negative Negative 365) KETONES UA (BEAKER) (test code = Negative Negative 371) BILIRUBIN UA (BEAKER) (test code = Negative Negative 462) BLOOD UA (BEAKER) (test code = 461) Negative Negative NITRITE UA (BEAKER) (test code = Negative Negative 465) LEUKOCYTE ESTERASE UA (BEAKER) Negative Negative (test code = 466) UROBILINOGEN UA (BEAKER) (test code 2.0 mg/dL 0.2-1.0 H = 463) RBC UA (BEAKER) (test code = 519) < /HPF WBC UA (BEAKER) (test code = 520) < /HPF BACTERIA (BEAKER) (test code = 517) Rare MUCUS (BEAKER) (test code = 1574) Rare SQUAMOUS EPITHELIAL (BEAKER) (test 3 /HPF code = 516) SOURCE(BEAKER) (test code = 5850) [id number] 14:07:00 Test Item Value Reference Range Interpretation Comments PARTIAL THROMBOPLASTIN TIME 29.7 seconds 22.5-36.0 (BEAKER) (test code = 760) PROTHROMBIN TIME/[id number] 14:06:00 Test Item Value Reference Range Interpretation Comments PROTIME (BEAKER) (test code = 13.6 seconds 11.7-14.7 759) INR (BEAKER) (test code = 370) 1.0 <=5.9 RECOMMENDED COUMADIN/WARFARIN INR THERAPY RANGESSTANDARD DOSE: 2.0 - 3.0 Includes: PROPHYLAXIS forvenous thrombosis, systemic embolization; TREATMENT for venous thrombosis and/or pulmonary embolus.HIGH RISK: Target INR is 2.5-3.5 for patients with mechanical heart valves.RAD, CHEST, 2 [id number] 14:01:00 Reason for exam:->pre op for lumbar laminectomyShould this [...] evidence of acute cardiopulmonary disease. Signed: Agustin Adrianepkarl Verified Date/Time: 08/02/2018 14:01:18 Reading Location: [facility] Radiology Reading Room CBC W/PLT COUNT & AUTO [id number] 14:00:00 Test Item Value Reference Range Interpretation Comments WHITE BLOOD CELL COUNT (BEAKER) 8.3 K/ L 3.5-10.5 (test code = 775) RED BLOOD CELL COUNT (BEAKER) 4.87 M/ L 3.93-5.22 (test code = 761) HEMOGLOBIN (BEAKER) (test code = 13.0 GM/DL 11.2-15.7 410) HEMATOCRIT (BEAKER) (test code = 41.8 % 34.1-44.9 411) MEAN CORPUSCULAR VOLUME (BEAKER) 85.8 fL 79.4-94.8 (test code = 753) MEAN CORPUSCULAR HEMOGLOBIN 26.7 pg 25.6-32.2 (BEAKER) (test code = 751) MEAN CORPUSCULAR HEMOGLOBIN CONC 31.1 GM/DL 32.2-35.5 L (BEAKER) (test code = 752) RED CELL DISTRIBUTION WIDTH 14.5 % 11.7-14.4 H (BEAKER) (test code = 412) PLATELET COUNT (BEAKER) (test 245 K/CU MM 150-450 code = 756) MEAN PLATELET VOLUME (BEAKER) 11.7 fL 9.4-12.3 (test code = 754) NUCLEATED RED BLOOD CELLS 0 /100 WBC 0-0 (BEAKER) (test code = 413) NEUTROPHILS RELATIVE PERCENT 61 % (BEAKER) (test code = 429) LYMPHOCYTES RELATIVE PERCENT 32 % (BEAKER) (test code = 430) MONOCYTES RELATIVE PERCENT 6 % (BEAKER) (test code = 431) EOSINOPHILS RELATIVE PERCENT 0 % (BEAKER) (test code = 432) BASOPHILS RELATIVE PERCENT 1 % (BEAKER) (test code = 437) NEUTROPHILS ABSOLUTE COUNT 5.08 K/ L 1.56-6.13 (BEAKER) (test code = 670) LYMPHOCYTES ABSOLUTE COUNT 2.66 K/ L 1.18-3.74 (BEAKER) (test code = 414) MONOCYTES ABSOLUTE COUNT (BEAKER) 0.46 K/ L 0.24-0.36 H (test code = 415) EOSINOPHILS ABSOLUTE COUNT 0.03 K/ L 0.04-0.36 L (BEAKER) (test code = 416) BASOPHILS ABSOLUTE COUNT (BEAKER) 0.04 K/ L 0.01-0.08 (test code = 417) IMMATURE GRANULOCYTES-RELATIVE 0 % 0-1 PERCENT (BEAKER) (test code = 1841)
--- OUTSIDE RECORDS SUMMARY | 2020-04-15 09:37 | XMS REPORT ---
:1980 Author Organization e[employer] Care Team Providers Name Role Phone Lisa Vides Provider Role Unavailable Allergies No Known Allergies Problems Problem Type Condition Code Onset Dates Condition Statu s Problem Circulation problem I99.9 Active Problem Attention deficit disorder, F98.8 Active unspecified hyperactivity presence Problem Hypertension, unspecified type I10 Active Problem Acute pain of right knee M25.561 Act maryann Problem Morbid obesity E66.01 Active Problem Left hip pain M25.552 Active Problem Bipolar 1 disorder F31.9 Active Problem Dietary surveillance and counseling Z71.3 Active Problem Bipolar affective disorder, F31.9 Active remission status unspecified Problem Dietary counseling Z71.3 Active Problem History of fall Z91.81 Active Problem ADHD (attention deficit F90.2 Acti ve hyperactivity disorder), combined type Problem Depression with anxiety F41.8 Acti ve Problem Chronic pain syndrome G89.4 Active Problem Vitamin D deficiency E55.9 Active Problem Vitamin B12 deficiency E53.8 Activ e Problem Environmental allergies Z91.09 Acti ve Problem Swelling R60.9 Active Assessment Dietary surveillance and counseling Z71.3 Active Problem Memory deficits R41.3 Active Problem Allergic arthritis M13.89 Active Assessment Morbid obesity E66.01 Active Problem Lightheadedness R42 Active Problem Gastroesophageal reflux disease, K21.9 Active esophagitis presence not specified Medications Medication Code Code Instructions Start End Date Status Dosage System Date Pen Bethany [facility] [id number] 32G X 6 MM June 08, Active as d irected subcutaneous 2017 (for Once daily as Saxenda directed Pen) Saxenda [facility] [id number] 18 MG/3ML June 08, Oct 06, Active as direct ed Subcutaneous 2017 2017 Start 0.6 mg once daily x1 week, then increase weekly by 0.6 mg to max of 3 mg/day Results No Known Results Summary Purpose eClinicalWorks Submission
--- OUTSIDE RECORDS SUMMARY | 2020-04-15 09:38 | XMS REPORT ---
:1980 Author Organization [employer] Care Team Providers Name Role Phone Lisa Vides Provider Role Unavailable Allergies No Known Allergies Problems Problem Type Condition Code Onset Dates Condition Statu s Problem Depression with anxiety F41.8 Acti ve Problem Attention deficit disorder, F98.8 Active unspecified hyperactivity presence Problem Bipolar affective disorder, F31.9 Active remission status unspecified Problem Chronic pain syndrome G89.4 Active Problem Dietary counseling Z71.3 Active Problem Acute pain of right knee M25.561 Act maryann Problem ADHD (attention deficit F90.2 Acti ve hyperactivity disorder), combined type Problem Incontinence in female R32 Activ e Problem Dietary surveillance and counseling Z71.3 Active Problem Environmental allergies Z91.09 Acti ve Problem Lightheadedness R42 Active Problem Kidney stones N20.0 Active Problem Memory deficits R41.3 Active Problem Left hip pain M25.552 Active Problem History of fall Z91.81 Active Problem Morbid obesity with body mass index E66.01 Active (BMI) greater than or equal to 50 Problem History of hypertension Z86.79 Acti ve Problem Bipolar 1 disorder F31.9 Active Problem Vitamin D deficiency E55.9 Active Problem Swelling R60.9 Active Problem Allergic arthritis M13.89 Active Problem Circulation problem I99.9 Active Problem Hypertension, unspecified type I10 Active Problem Vitamin B12 deficiency E53.8 Activ e Problem Gastroesophageal reflux disease, K21.9 Active esophagitis presence not specified Medications No Known Medications Results No Known Results Summary Purpose eClinicalWorks Submission
--- OUTSIDE RECORDS SUMMARY | 2020-04-15 09:38 | XMS REPORT ---
:1980 Author Organization eClinicalWorks Care Team Providers Name Role Phone CarmelMayacy Provider Role Unavailable Allergies, Adverse Reactions, Alerts Substance Reaction Event Type adhesives blisters Non Drug Allergy Problems Problem Type Condition Code Onset Dates Condition Statu s Assessment Incontinence in female R32 Activ e Assessment Kidney stones N20.0 Active Assessment History of recurrent UTIs Z87.440 Ac tive Problem Depression with anxiety F41.8 Acti ve [...] End Status Dosage System Date Date Omeprazole [facility] 92480732297 40 MG Orally Active 1 ca psule Once daily Viibryd [facility] 68843986153 40 MG Orally Active 1 table t Once a day with food BuPROPion HCl [facility] 64060130684 75 MG Orally Active 2 tablets Twice a day Macrobid [facility] 76540241366 100 mg Orally Active 1 cap sivakumar As directed prn UTI symptoms Gabapentin ND 55706076863 600 MG Orally Active 1 t ablet Three times a day Klonopin ND 88126149892 2 MG Orally PRN Active 1 t ablet Citalopram ND 49984360304 20 MG Orally Active 1 ta blet Hydrobromide Once a day BuSpar NDC 0 10 MG Orally Active 1 tablet Twice a day Abilify ND 02599052914 20 MG Orally Active 1 table t Once a day [place] [facility] 86056490845 5-325 MG Orally Active 1 ta blet as every 6 hrs needed Potassium ND 85247085850 10 MEQ Orally Active 1 ta blet Chloride Jane ER Twice a day wit h food Pen [place] [facility] 98225631143 32G X 6 MM June 08, Active as d irected subcutaneous 2017 (for Once daily as Saxenda directed Pen) Vyvanse [facility] 05416564439 70 MG Orally Active 1 capsu le Once a day in the morning Wellbutrin XL ND 02600511983 150 MG Orally Active 1 tablet in Once a day the morning Nitrofurantoin ND 31532579385 100 mg Orally Dec 14Dec Active 1 capsule Monohyd Macro BID 2018 13, with food 2018 Singulair ND 88779158129 10 MG Orally January Active 1 tab let Once a day 2017 for allergies Wellbutrin XL ND 53698348417 300 MG Orally Active 1 tablet in Once a day the morning Furosemide ND 86876046176 20 MG Orally Active 1 ta blet Once a day Tizanidine HCl ND 81853927415 4 MG Orally Active 1 tablet as Three times a needed day EpiPen 2-Kit [facility] 26151402831 0.3 MG/0.3ML Active as directed Injection as directed Zanaflex ND 99060616738 4 MG Orally Active 1 table t as Three times a needed day Results Name Result Date Reference Range Unit Abnormali ty Flag URINALYSIS AUTO W/O SCOPE (88962) ----NIT neg 20181214 ----URO 0.2 20181214 ----PROTEIN neg 20181214 ----pH 5.5 20181214 ----BLO neg 20181214 ----GLUCOSE neg 20181214 ----DANIELLA neg 20181214 ----BILIRUBIN neg 20181214 ----KETONES neg 20181214 ----SPECIFIC GRAVITY >=1.030 20181214 PVR ----PVR 20181214 Summary Purpose eClinicalWorks Submission
--- OUTSIDE RECORDS SUMMARY | 2020-04-15 09:38 | XMS REPORT ---
[...] Z91.09 Acti ve Problem Swelling R60.9 Active Problem Memory deficits R41.3 Active Problem Allergic arthritis M13.89 Active Problem Lightheadedness R42 Active Problem Gastroesophageal reflux disease, K21.9 Active esophagitis presence not specified Medications No Known Medications Results No Known Results Summary Purpose eClinicalWorks Submission
--- OUTSIDE RECORDS SUMMARY | 2020-04-15 09:38 | XMS REPORT ---
:1980 Author Organization e[employer]Works Care Team Providers Name Role Phone Peewee Lisa Provider Role Unavailable Allergies, Adverse Reactions, Alerts Substance Reaction Event Type adhesives blisters Non Drug Allergy Problems Problem Type Condition Code Onset Dates Condition Statu s Assessment Influenza vaccination administered Z23 Active at current visit Problem Hypertension, unspecified type I10 Active Assessment Acute pain of right knee M25.561 Act maryann Problem Circulation problem I99.9 Active Problem Bipolar affective disorder, F31.9 Active remission status unspecified Problem Dietary counseling Z71.3 Active Problem Attention deficit disorder, F98.8 Active unspecified hyperactivity presence Problem Morbid obesity with body mass index E66.01 Active (BMI) greater than or equal to 50 Problem History of hypertension Z86.79 Acti ve Problem Memory deficits R41.3 Active Problem Chronic pain syndrome G89.4 Active Problem Dietary surveillance and counseling Z71.3 Active Problem Depression with anxiety F41.8 Acti ve Problem Acute pain of right knee M25.561 Act maryann Problem ADHD (attention deficit F90.2 Acti ve hyperactivity disorder), combined type Problem Left hip pain M25.552 Active Problem History of fall Z91.81 Active Problem Swelling R60.9 Active Problem Allergic arthritis M13.89 Active Problem Lightheadedness R42 Active Problem Environmental allergies Z91.09 Acti ve Problem Vitamin B12 deficiency E53.8 Activ e Problem Gastroesophageal reflux disease, K21.9 Active esophagitis presence not specified Problem Bipolar 1 disorder F31.9 Active Problem Vitamin D deficiency E55.9 Active Medications Medication Code Code Instructions Start End Status Dosage System Date Date Pen [place] [facility] 49164157699 32G X 6 MM June 08, Active as d irected subcutaneous 2017 (for Saxend a Once daily as Pen) directed Potassium ND 14128726765 10 MEQ Orally Active 1 ta blet Chloride Jane Twice a day with f ood ER Wellbutrin XL ND 66165065665 150 MG Orally Active 1 tablet in Once a day the morning Gabapentin ND 94786082257 600 MG Orally Active 1 t ablet Three times a day Citalopram [facility] 62995817476 20 MG Orally Active 1 ta blet Hydrobromide Once a day Furosemide ND 68742592508 20 MG Orally Active 1 ta blet Once a day Zanaflex [facility] 64980449499 4 MG Orally Active 1 table t as Three times a needed day Vyvanse [facility] 72491698574 70 MG Orally Active 1 capsu le in Once a day the morning [place] [facility] 15784470927 5-325 MG Orally Active 1 ta blet as every 6 hrs needed Saxenda [facility] 71840371842 18 MG/3ML June 08, Oct 06, Active as direct ed Subcutaneous 2017 2017 Start 0.6 mg once daily x1 week, then increase weekly by 0.6 mg to max of 3 mg/day Abilify [facility] 37102034124 20 MG Orally Active 1 table t Once a day Klonopin [facility] 91089434410 2 MG Orally PRN Active 1 t ablet Macrobid [facility] 34543476275 100 mg Orally Active 1 cap sivakumar As directed prn UTI symptoms Wellbutrin XL [facility] 16959963307 300 MG Orally Active 1 tablet in Once a day the morning Omeprazole [facility] 99411632985 40 MG Orally Active 1 ca psule Once daily Singulair [facility] 98835002110 10 MG Orally March Active 1 tab let for Once a day 2017 allergies EpiPen 2-Kit [facility] 28699975514 0.3 MG/0.3ML Active as directed Injection as directed Results No Known Results Immunizations Vaccine Administration Date Flucelvax Aug 30, 2018 Summary Purpose eClinicalWorks Submission
--- OUTSIDE RECORDS SUMMARY | 2020-04-15 09:38 | XMS REPORT ---
[...] Depression with anxiety F41.8 Acti ve Assessment Environmental allergies Z91.09 Acti ve Assessment Morbid obesity with body mass index E66.01 Active (BMI) greater than or equal to 50 Assessment Dietary surveillance and counseling Z71.3 Active Assessment History of hypertension Z86.79 Acti ve Problem Hypertension, unspecified type I10 Active Assessment [...] System Date Date Gabapentin [facility] 16681678049 600 MG Orally Active 1 t ablet Three times a day [place] [facility] 79715759287 5-325 MG Orally Active 1 ta blet as every 6 hrs needed Pen [place] [facility] 07107994924 32G X 6 MM June 08, Active as d irected subcutaneous 2017 (for Saxend a Once daily as Pen) directed Abilify [facility] 90737210409 20 MG Orally Active 1 table t Once a day Saxenda [facility] 97793979283 18 MG/3ML June 08Oct 06, Active as direct ed Subcutaneous 2017 2017 Start 0.6 mg once daily x1 week, then increase weekly by 0.6 mg to max of 3 mg/day Omeprazole [facility] 05588302803 40 MG Orally Active 1 ca psule Once daily Furosemide [facility] 85279522789 20 MG Orally Active 1 ta blet Once a day Klonopin [facility] 65172617610 2 MG Orally PRN Active 1 t ablet Wellbutrin XL [facility] 03368745942 150 MG Orally Active 1 tablet in Once a day the morning Wellbutrin XL [facility] 07469197762 300 MG Orally Active 1 tablet in Once a day the morning Macrobid [facility] 58703622782 100 mg Orally Active 1 cap sivakumar As directed prn UTI symptoms EpiPen 2-Kit [facility] 85437009795 0.3 MG/0.3ML Active as directed Injection as directed Citalopram [facility] 61707299369 20 MG Orally Active 1 ta blet Hydrobromide Once a day Potassium [facility] 11190981513 10 MEQ Orally Active 1 ta blet Chloride Jane Twice a day with f ood ER Zanaflex [facility] 83884443207 4 MG Orally Active 1 table t as Three times a needed day Singulair [facility] 16563011492 10 MG Orally March Active 1 tab let for Once a day 2017 allergies Vyvanse [facility] 75035244900 70 MG Orally Active 1 capsu le in Once a day the morning Results No Known Results Summary Purpose eClinicalWorks Submission
--- OUTSIDE RECORDS SUMMARY | 2020-04-15 09:39 | XMS REPORT ---
:1980 Author Organization eClinicalWorks Care Team Providers Name Role Phone Gary Videsen Provider Role Unavailable Allergies, Adverse Reactions, Alerts Substance Reaction Event Type adhesives blisters Non Drug Allergy Problems Problem Type Condition Code Onset Dates Condition Statu s Assessment Vitamin D deficiency E55.9 Active Assessment Morbid obesity with body mass index E66.01 Active (BMI) greater than or equal to 50 Assessment Skin lesion L98.9 Active Assessment History of hypertension Z86.79 Acti ve Assessment Elevated liver function tests R94.5 Active Assessment Gastroesophageal reflux disease, K21.9 Active esophagitis presence not specified Problem Bipolar 1 disorder F31.9 Active Problem Vitamin D deficiency E55.9 Active Problem Vitamin B12 deficiency E53.8 Activ e Problem Bipolar affective disorder, F31.9 Active remission status unspecified Problem ADHD (attention deficit F90.2 Acti ve hyperactivity disorder), combined type Problem Depression with anxiety F41.8 Acti ve Problem Acute pain of right knee M25.561 Act maryann Problem Left hip pain M25.552 Active Problem History of fall Z91.81 Active Problem Elevated liver function tests R94.5 Active Problem Incontinence in female R32 Activ e Problem Lightheadedness R42 Active Problem Memory deficits R41.3 Active Problem Skin lesion L98.9 Active Problem Chronic pain syndrome G89.4 Active Problem Morbid obesity with body mass index E66.01 Active (BMI) greater than or equal to 50 Problem History of hypertension Z86.79 Acti ve Problem Kidney stones N20.0 Active Problem Dietary surveillance and counseling Z71.3 Active Assessment Bipolar affective disorder, F31.9 Active remission status unspecified Problem Allergic arthritis M13.89 Active Assessment Depression with anxiety F41.8 Acti ve Problem Gastroesophageal reflux disease, K21.9 Active esophagitis presence not specified Problem Environmental allergies Z91.09 Acti ve Problem Swelling R60.9 Active Problem Attention deficit disorder, F98.8 Active unspecified hyperactivity presence Problem Dietary counseling Z71.3 Active Problem Circulation problem I99.9 Active Problem Hypertension, unspecified type I10 Active Medications Medication Code Code Instructions Start End Status Dosage System Date Date Ranitidine HCl [facility] 45123777169 150 MG Orally Jan 11, Active 1 tablet at Once a day 2019 bedtime Abilify [facility] 01156846247 15 MG Orally Active 1 table t Once a day Pen [place] [facility] 09929807162 32G X 6 MM May Active as di rected subcutaneous , (for Once daily as 2018 Saxenda directed Pen) BuSpar ND 0 10 MG Orally Active 1 tablet Twice a day Singulair ND 17172652500 10 MG Orally January Active 1 tab let Once a day , for 2018 allergies Klonopin ND 04894896747 2 MG Orally Active 1 table t PRN Wellbutrin XL ND 34138867179 300 MG Orally Active 1 tablet in Once a day the morning Omeprazole ND 96053977337 40 MG Orally Inactive 1 c apsule Once daily Zanaflex ND 26776100413 4 MG Orally Active 1 table t as Three times a needed day Vyvanse [facility] 40646209116 70 MG Orally Active 1 capsu le Once a day in the morning Tizanidine HCl ND 27086632234 4 MG Orally Active 1 tablet as Three times a needed day Potassium ND 39115534336 10 MEQ Orally Active 1 ta blet Chloride Jane ER Twice a day wit h food Furosemide ND 41603509089 20 MG Orally Active 1 ta blet Once a day [place] [facility] 22533443175 5-325 MG Active 1 tablet as Orally every 6 needed hrs Lamictal ND 75850781601 25 MG Orally Active 2 tabl ets Once daily Citalopram ND 61629185830 20 MG Orally Active 1 ta blet Hydrobromide Once a day Gabapentin ND 45674691647 600 MG Orally Active 1 t ablet Three times a day Wellbutrin XL ND 69497208588 150 MG Orally Active 1 tablet in Once a day the morning Macrobid [facility] 20392761449 100 mg Orally Active 1 cap sivakumar As directed prn UTI symptoms Viibryd [facility] 51280482728 40 MG Orally Active 1 table t Once a day with food EpiPen 2-Kit [facility] 41182511360 0.3 MG/0.3ML Active as directed Injection as directed BuPROPion HCl [facility] 03316558710 75 MG Orally Active 2 tablets Twice a day Nitrofurantoin [facility] 71985317192 100 mg Orally Dec 14Dec Active 1 capsule Monohyd Macro BID 2018, with food 2018 Results No Known Results Summary Purpose eClinicalWorks Submission
[2020-04-15 09:44] LABS: Protime INR 1.1
[2020-04-15 09:45] VITALS: BMI 46.2
--- NOTE | 2020-04-15 12:02 | RAD REPORT ---
EXAM DESCRIPTION: RAD - Myelography Lumbar - 04/15/2020 11:36 am CLINICAL HISTORY: [id number],[id number], patient details low back pain, prior lower lumbar surgery and right lo wer extremity radiculopathy COMPARISON: Lumbar spine February 2019 TECHNIQUE: The lumbar myelogram procedure, risks and alternatives to the procedure were discussed wi th the patient in detail. After answering all questions, both oral and written consent were obtained. Time-out procedure was performed. Patient had no contraindicated allergy or medication history. The patient was placed in an oblique prone position on the fluoroscopic table. The skin of the lower back was prepped and draped in the usual sterile fashion. After anesthetizing the skin and deeper sof t tissues with 1% lidocaine, a 22 gauge needle was advanced into the thecal sac at the L4 level. Intrathecal placement was confirmed. Clear colorless CSF was observed. Approximately 10 mL of Isovue M 200 contrast material was instilled into the thecal sac. Needle was withdrawn and a sterile bandage placed to the puncture site. Multiple lumbar myelogram images were obtained. The patient tolerated the procedure well without immediate complications. Post-procedure care and pre caution instructions were discussed with the patient before the myelogram procedure. Patient was valladares sferred to the CT suite for cross-sectional imaging. There were 9 fluoroscopic spot images obtained. AP and lateral city weighmaster images were obtained as well. Fluoro time was 4.4 minutes. IMPRESSION: Successful fluoroscopic guided lumbar myelogram procedure as detailed. Lumbar myelogram findings are incorporated into the CT lumbar spine report.
[2020-04-15 13:05] VITALS: O2SAT 100
[2020-04-15 13:12] LABS: Platelet Estimate ADEQ
[2020-04-15 14:15] VITALS: BP 114/68; TEMP 98.9
--- NOTE | 2020-04-15 14:46 | RAD REPORT ---
EXAM DESCRIPTION: CT - Spine Lumbar Wo Con - 04/15/2020 11:27 am CLINICAL HISTORY: [id number] COMPARISON: Lumbar myelogram images same date, lumbar plain film February 2019 TECHNIQUE: Thin section axial imaging of the lumbar spine was performed. Sagittal and coronal recon struction images were generated and reviewed. All CT scans are performed using dose optimization technique as appropriate and may include automated exposure control or mA/KV adjustment according to patient size. FINDINGS: Cross-sectional imaging was performed following lumbar myelogram. No arm wall conus is seen terminating at the L1 level. There is no clumping or thickening of the caud a equina. Patient has a history of lumbar surgery. Exact procedure is not evident. The patient may have had a p artial laminectomy at the L4-5 level. Lumbar bodies are normal in height. Patient has left lateral tilt of the upper lumbar spine that may be part of a lower thoracic levoscoliosis. T10-T11 level: No significant finding. T11-T12 level: No significant finding. T12-L1 level: No significant finding. L1-2 level: No significant finding. L2-3 level: No herniation or significant disc bulge. No canal or foramen stenosis. Facet joint degene rative changes are present. L3-4 level: Prominent bulging of disc material seen in the midline extending into the left exit jamil en. Facet joint degenerative change and ligamentous thickening are mild. Midline and left anterior th ecal sac are flattened. Spinal stenosis is present down to 9 mm. Mild left foraminal stenosis present . There is prominent bulging disc material in the far lateral extraforaminal space on the left. No si gnificant right foraminal stenosis. L4-5 level: Disc is thinned. There is bulging of disc material across the central canal and into each exit foramen. This is worse on the right. Left foraminal encroachment is minimal. Right foraminal st enosis is present. Patient appears to have undergone partial laminectomy on the left. No significant central spinal stenosis. Facet joint degenerative changes are present. L5-S1 level: No herniation or significant degree of disc bulge identifiable. No displacement of an S1 nerve root. No central spinal stenosis. No significant foraminal encroachment identified on the left . Minimal right foraminal encroachment. Facet joint degenerative change is present but mild. IMPRESSION: L3-4 central spinal stenosis is present 9 mm. Patient has central canal and left foramen prominent disc bulge. Mild left foraminal stenosis is present. Degenerative disc disease at L4-5 with but appears to be a partial laminectomy on the left. L4-5 disc bulge causes right foraminal stenosis. No central canal or left foramen stenosis. No arachnoiditis findings. No clumping or thickening of the cauda equina.
== END 2020-04-15 14:14 | disposition home or self-care (01) ==
LOC: DS 08:53
PROVIDERS: ATTEND Specialist
DX: M54.16 Radiculopathy, lumbar region (principal); M54.5 Low back pain
CPT/HCPCS: 36415; 62304; 72131; 85049; 85610; 85730

== ENCOUNTER 2021-06-22 20:16 | Emergency (ER) | payer OTHER ==
--- OUTSIDE RECORDS SUMMARY | 2021-06-22 20:19 | XMS REPORT | Continuity of Care Document ---
:1980 Author Organization [facility] t Address [address] [place] [address] Dr. Hightower. [address] [place] [address] Care Team Providers Name Role Phone DARYA Attending Clinician Unavailable Franky CONSTANTINO Attending Clinician Onesimo FERGUSON Attending Clinician Doctor Unassigned, Name Attending Clinician Unavailable Magaly Marie MD Attending Clinician ZELALEM BARROSO Attending Clinician Unavailable ZELALEM BARROSO Admitting Clinician Unavailable Payers Payer Name Policy Type Policy Number Effective Date Expiration Date S ource CIGNA MEDICARE - [id number] [facility] PART A [id number] \\T\\ B - [id number] [id number] 2018 2018 MEDICAID 00:00:00 00:00:00 HMO/POS OPEN [id number] ACCESS - CIGNA Problems This patient has no known problems. Allergies, Adverse Reactions, Alerts Allergy Allergy Status Severity Reaction(s) Onset Inactive Treating Comm ents Source Name Type Date Date Clinician adhesive Adverse Active blisters [facility] Medications Ordered Filled Start Stop Current Ordering Indication Dosage Frequency Signature Comments Components Source Medication Medication Date Date Medication? Clinician (SIG) Name Name Ranitidine Ranitidine Yes Lisa [address] [facility] HCl HCl 2-13 [place] at bedtime Luke s - 00:00: [facility] 00 l [facility] Nitrofurant Nitrofurant 2019- No Lisa [address] [facility] oin Monohyd oin Monohyd 1-16 02-13 Millender with food [facility]ro Macro 00:00: 00:00 Memoria 00 :00 l [facility] [place] Yes Lisa as [facility] directed [facility] - 00:00: (for Memoria 00 Saxenda l Pen) [facility] Singulair Singulair Yes Lisa [address] [facility] 3[facility]29 [place] for [facility] - 00:00: allergies Memoria 00 l [facility] Tizanidine Tizanidine Yes Lisa [address] [facility] [address] HCl HCl [place] as needed [facility] Abilify Abilify Yes Lisa [address] [facility] Millender [facility] Lamictal Lamictal Yes Lias [address] Millender [facility] Gabapentin Gabapentin Yes Lisa [address] [facility] Millender [facility] [place] Yes Lisa [address] [facility] Millender as needed [facility] Omeprazole Omeprazole Yes Lisa [address] [facility] Millender [facility] Furosemide Furosemide Yes Lisa [address] [facility] [address] Millender [facility] Klonopin Klonopin Yes Lisa [address] [facility] Wellbutrin Wellbutrin Yes Lisa [address] [facility] XL XL Mill[place] in the [facility] Wellbutrin Wellbutrin Yes Lisa [address] [facility] XL XL Mill[place] in the [facility] Macrobid Macrobid Yes Lisa 1 [...] [facility] BuSpar BuSpar Yes Lisa [address] [facility] Potassium Potassium Yes Lisa [address] [facility] Chloride Chloride [place] with food [facility] Vyvanse Vyvanse Yes Lisa [address] [facility] [place] in the [facility] Immunizations Ordered Filled Immunization Date Status Comments [facility] Immunization Name Name Flucelvax Flucelvax 2018-08-[address] [facility]00 [facility] Outpatient [facility] Procedures This patient has no known procedures. Encounters Start End Encounter Admission Attending Care Care Encounter Source Date/Time Date/Time Type Type Clinicians Facility Department ID 2021-06-13 2021-06-13 Outpatient CINTHIA LACKEY [facility] [id number] [facility] 08:46:38 11:23:45 CODEY landrum Medicin e 2021-05-05 2021-05-[address] [facility] [id number] [facility] 2021-02-17 2021-02-[address] [facility] [id number] [facility] 2021-01-27 2021-01-[address] [facility] [id number] [facility] 2021-01-27 2021-01-27 Out[facility] [id number] [facility] 2021-01-20 2021-01-20 [facility] [id number] [facility] 2021-01-09 2021-01-09 [facility] [id number] [facility] 2020-12-31 2020-12-31 Out[facility] [id number] [facility] 2020-10-08 2020-10-08 Out[facility] [id number] [facility] 2020-10-07 2020-10-07 [facility] [id number] 2020-04-19 2020-04-19 [facility] [id number] 16:41:40 18:16:00 Meghan Suarez [id number] [place] 4.2.7.2.686 [place] [id number] 2019-08-03 2019-08-03 [facility] [id number] 00:00:00 00:00:00 Savage Suarez [id number] [place] [id number] Professio [phone] nal 059 [facility] 2019-08-03 2019-08-03 Orders Doctor JACKIE [id number] 00:00:00 00:00:00 Only Unassigned, ENEIDA [id number]2.686 [id number] 2019-06-26 2019-06-26 Telephone [facility] [id number] 00:00:00 00:00:00 Savage Suarez [id number] [place] [id number] Professio [id number] nal 059 [facility] 2019-06-25 2019-06-25 Urgent Silvia, [facility] [id number] 15:43:05 15:58:05 Care [facility] [id number] Surgical 4.2.7.2.686 Specialti [id number] Caitlin Suarez 2019-05-30 2019-06-24 Office Onesimo [facility] [id number] 15:01:31 13:03:08 Visit [place] [id number] [place] 4.2.7.2.686 Professio [id number] nal 059 [facility] 2019-01-11 2019-01-11 [facility] [id number] [address] 10:30:00 10:30:00 [facility] Medicine Outpati ent Clinics 2018-12-14 2018-12-14 [facility] [id number] 09:30:00 09:30:00 t Specialty/U Kirstin kes - Specialty rology [facility] a /Urology Clinic l Clinic Outpati ent Clinics 2018-12-13 2018-12-13 [facility] [id number] 08:22:00 08:22:00 [facility] Medicine Outpati ent Clinics 2018-12-12 2018-12-12 [facility] [id number] 14:09:00 14:09:00 [facility] Medicine Outpati ent Clinics 2018-12-09 2018-12-09 [facility] [id number] 10:07:00 10:07:00 [facility] Medicine Outpati ent Clinics 2018-08-30 2018-08-30 [facility] [id number] 09:15:00 09:15:00 t [facility] Medicine Outpati ent Clinics 2018-08-23 2018-08-23 [facility] [id number] 11:00:00 11:00:00 t [facility] Medicine Medicine Outpati ent Clinics 2018-07-28 2018-07-28 [facility] [id number] 08:25:00 08:25:[address] [facility] Medicine Medicine Outpati ent Clinics 2018-06-29 2018-06-29 [facility] [id number] 15:34:00 15:34:00 t [facility] Medicine l Medicine Outpati ent Clinics 2018-06-17 2018-06-17 [facility] [id number] 13:02:00 13:02:00 t [facility] Medicine l Medicine Outpati ent Clinics 2018-06-08 2018-06-08 [facility] [id number] 15:35:00 15:35:00 t [facility] Medicine Outpati ent Clinics 2018-05-23 2018-05-23 [facility] [id number] 08:45:00 08:45:00 t [facility] Medicine Medicine Outpati ent Clinics 2018-05-10 2018-05-10 [facility] [id number] 11:29:00 11:29:00 t [facility] Medicine Medicine Outpati ent Clinics 2018-03-31 2018-03-31 [facility] [id number] 13:00:00 13:00:00 t [facility] Medicine l Medicine Outpati ent Clinics 2018-03-16 2018-03-16 [facility] [id number] 11:07:00 11:07:00 t [facility] Medicine Medicine Outpati ent Clinics 2018-03-07 2018-03-07 [facility] [id number] 14:44:00 14:44:00 t [facility] Medicine Medicine Outpati ent Clinics Results Test Description Test Time Test Comments Results Result [facility] Comments RAD, SPINE, 2021-04-16 Reason for SCOLIOSIS STUDY, 13:03:00 Exam:->Scheue 2 OR 3 VIEWS rmann's [facility] CENTERName: JANA HUBBARD : 1980 Sex: F FINAL REPORT EXAMINATION: RAD, SPINE, SCOLIOSIS STUDY, 2 OR 3 VIEWS INDICATION: Scheuermann's kyphosis COMPARISON: Chest radiographs 08/02/2018 DISCUSSION:Osseous detail is partially obscured on lateral views by overlying bones/soft tissues which partially limits evaluation. No acute displaced fracture or compression deformity is identified given exam limitations.Unchanged anterior wedging of multiple mid thoracic vertebral bodies. Sigmoid scoliosis with dextroconvex curvature centered at L2 with Boothe angle measuring approximately 21 degrees and levoconvex curvature centered at T9-T10 with Boothe angle measuring approximately 18 degrees. No significant coronal imbalance.Exaggerated thoracic kyphosis and lumbar lordosis. No significant sagittal imbalance. Mild multilevel degenerative disc changes throughout the thoracic and lumbar spine. Additional mild multilevel facet arthropathy of the lumbar spine. No acute soft tissue abnormalities. IMPRESSION:No acute osseous abnormality given exam limitations. Unchanged anterior wedging of multiple midthoracic vertebral bodies with exaggerated thoracic kyphosis, consistent with Scheuermann's kyphosis. Additional sigmoid scoliosis with mild multilevel degenerative changes. 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 UE EXAM 2018-08-22 Surgical Pathology Report 13:20:00 Case: [id number] Authorizing Provider: Hector Barroso MD Collected: 08/17/2018 1142 Ordering Location: [facility] Received: 08/17/2018 1146 SERVICES Pathologist: Phoenix George MD Specimen: Disc L4-5 VERTEBRAL COLUMN, INTERVERTEBRAL DISC, L4-5, DISCECTOMY:FRAGMENTS OF FIBROCARTILAGE WITH MILD DEGENERATIVE CHANGES Signing Pathologist Direct Phone Line: [phone] y signed by Phoenix George MD on 08/22/2018 at 1:20 [id number]; [id number] lumbar radiculopathy, herniated nucleus pulposus of the lumbarDisc L4-5The specimen is received in saline labeled with the patient's information and labeled "disc L4-5" and consists of a small segment of palafox-pink fibrocartilaginous tissue measuring 0.5 cm in greatest dimensio submitted entirely A1 for light decalcification. CG/pl Performed NEEDLE EMG, 2 2018-08-19 INTRAOPERATIVE MONITORING EXTREMITY 12:43:00 REPORT Patient Name: Jana Hubbard [facility] Surgery Date: 08/17/2018 [place] Pro: [id number] Monitoring began at 0935 and ended at [...] by the monitoring technologist. Free-running EMG of L2-U3lfhsqfmuyj muscle groups was monitored continuously throughout the [...] Hilton M.D., FACNS, FAAN, FAESProfessor of Neurology, [facility]ter[facility] Developmental CenterDirector, [facility] Epilepsy [facility] Neurophysiology [email or web address] [place] 2018-08-17 Reason for FINAL REPORT PATIENT ID: OR/30 MINUTE 11:16:00 exam:->back [id number] Lumbar spine INCREMENTS pain one lateral fluoroscopic image. Fluoroscopy time 13.2 seconds. Fluoroscopy was not performed by the undersigned. Refer to procedure notes for diagnostic and therapeutic detail. Marker projects L4/5 assuming five lumbar type vertebrae. Report called to Dr. Barroso who was in agreement. Signed: Jackie Gaines Verified Date/Time: 08/17/2018 11:16:40 Reading Location: [facility] Radiology Reading Room [email or web address] [place] 2018-08-17 Reason for FINAL REPORT PATIENT ID: OR/30 MINUTE 10:43:00 exam:->back [id number] Fluoroscopy. INCREMENTS pain History: Intraoperative. Findings: Radiologist [...] Gee Verified Date/Time: 08/17/2018 10:43:15 Reading Location: [address] Radiology Reading Room C METABOLIC PANEL [...] NOT 1092) ACCURATE CRE ATININE CLEARANCE IN [place] EDICTING GLOMERULAR FILT RATION RATE. ESTIMATED GFR IS NOT APPLICABLE FOR DIALYSIS PATIENTS. URINALYSIS W/ [id number] 14:09:00 Test Item Value Reference Range Interpretation [...] code = 516) SOURCE(BEAKER) (test code = 2795) [id number] 14:07:00 Test Item Value Reference Range Interpretation Comments PARTIAL THROMBOPLASTIN TIME 29.7 seconds 22.5-36.0 (BEAKER) (test code = 760) PROTHROMBIN [id number] 14:06:00 Test Item Value Reference Range Interpretation Comments PROTIME (BEAKER) (test code = 13.6 seconds 11.7-14.7 759) INR (BEAKER) (test code = 370) 1.0 <=5.9 RECOMMENDED COUMADIN/WARFARIN INR THERAPY RANGESSTANDARD DOSE: 2.0 - 3.0 Includes: PROPHYLAXIS forvenous thrombosis, systemic embolization; TREATMENT for venous thrombosis and/or pulmonary embolus.HIGH RISK: Target INR is 2.5-3.5 for patients with mechanical heart valves.RAD, CHEST, 2 [id number] 14:01:00 Reason for exam:->pre op for lumbar [...] of acute cardiopulmonary disease. Signed: Agustin Adrian [facility] Verified Date/Time: 08/02/2018 14:01:18 Reading Location: [facility] Radiology Reading Room CBC W/PLT COUNT & AUTO [id number] 14:00:00 Test Item Value Reference Range Interpretation [...] % 0-1 PERCENT (BEAKER) (test code = 2801)
[2021-06-23] MEDS ORDERED: KETOROLAC 30 MG/ML INJ ONE
--- NOTE | 2021-06-23 08:36 | RAD REPORT ---
EXAM DESCRIPTION: US - UPPER EXTREMITY VENOUS UNILATE - 06/22/2021 10:43 pm CLINICAL HISTORY: Pain;Swelling Arm pain and swelling COMPARISON: No comparisons FINDINGS: Left upper extremity venous system was interrogated with Doppler technique. Normal flow, c ompressibility and augmentation was noted. There is no DVT present.The left cephalic vein was not wel l seen. IMPRESSION: No evidence of left upper extremity deep venous thrombosis.
--- NOTE | 2021-06-23 08:38 | RAD REPORT ---
EXAM DESCRIPTION: RAD - Shoulder Left 2 View - 06/22/2021 10:52 pm CLINICAL HISTORY: PAIN COMPARISON: No comparisons FINDINGS: Postsurgical changes are seen involving the humeral head compatible prior rotator cuff rep air. Mild AC joint and glenohumeral joint arthritic changes are present. No acute fracture or disloca tion. No aggressive marrow lesion.
--- NOTE | 2021-06-23 08:40 | RAD REPORT ---
EXAM DESCRIPTION: RAD - Forearm Left - 06/22/2021 10:52 pm CLINICAL HISTORY: Pain;Swelling COMPARISON: No comparisons FINDINGS: No acute fracture or dislocation is seen.
--- NOTE | 2021-06-24 16:58 | ER ---
Nurse's Notes [facility] Name: Martha Garcia Age: 41 yrs Sex: Female : 1980 Arrival Date: 06/22/2021 Time: 20:19 Bed 4 Private MD: Diagnosis: Musculoskeletal Pain, Left Upper Extremity Presentation: 06/22 21:13 Chief complaint: Patient states: Reports left forearm pain that began this afternoon, lp1 denies any injury to site; Reports hx of left shoulder surgery in 2013, has had pain to left deltoid area x 2 months, reports left forearm pain is new, with some swelling. Coronavirus screen: Client denies travel out of the [place] in the last 14 days. At this time, the client does not indicate any symptoms associated with coronavirus-19. Ebola Screen: No symptoms or risks identified at this time. Risk Assessment: Do you want to hurt yourself or someone else? Patient reports no desire to harm self or others. Onset of symptoms was June 22, 2021. 21:13 Method Of Arrival: Ambulatory lp1 21:13 Acuity: MICHAEL 4 lp1 06/23 00:32 Initial Sepsis Screen: Does the patient meet any 2 criteria? No. Patient's initial kg sepsis screen is negative. Does the patient have a suspected source of infection? No. Patient's initial sepsis screen is negative. Triage Assessment: 00:32 General: Appears in no apparent distress. Behavior is calm, cooperative, appropriate kg for age, quiet. Musculoskeletal: No deficits noted. Musculoskeletal: No deficits noted. Reports pain in Left shoulder, Upper arm, left elbow, Left lower arm. MALARIOLOGIST: 00:32 LMP N/A - Hysterectomy kg Historical: - Allergies: 06/22 21:15 Adhesives; lp1 - Home Meds: 21:15 modafinil oral [Active]; BuSpar Oral [Active]; Percocet Oral [Active]; gabapentin oral lp1 [Active]; Cymbalta oral [Active]; Seroquel Oral [Active]; Omeprazole Oral [Active]; tizanidine oral [Active]; montelukast oral [Active]; - PMHx: 21:15 Bipolar disorder; Chronic pain; lp1 - PSHx: 21:15 Cholecystectomy; hysterecotmy; R ankle; laminectomy; gastric bypass; hernia repair; lp1 - Immunization history:: Adult Immunizations up to date. - Social history:: Smoking status: Patient denies any tobacco usage or history of. Screenin:00 Abuse screen: Denies threats or abuse. Denies injuries from another. Nutritional kg screening: No deficits noted. Tuberculosis screening: No symptoms or risk factors identified. Fall Risk None identified. No fall in past 12 months (0 pts). No secondary diagnosis (0 pts). No IV (0 pts). Ambulatory Aid- None/Bed Rest/Nurse Assist (0 pts). Gait- Normal/Bed Rest/Wheelchair (0 pts) Mental Status- Oriented to own ability (0 pts). Total Keita Fall Scale indicates No Risk (0-24 pts). Assessment: 22:25 General: Appears in no apparent distress. Behavior is calm, cooperative, appropriate kg for age, quiet. Pain: Complains of pain in left antecubital area and left elbow Pain radiates to left arm Pain currently is 7 out of 10 on a pain scale. at worst was 7 out of 10 on a pain scale. level that patient reports is acceptable is 5 out of 10 on a pain scale. Quality of pain is described as burning. Neuro: No deficits noted. Cardiovascular: No deficits noted. Respiratory: No deficits noted. Vital Signs: 21:18 BP 113 / 76; Pulse 83; Resp 18; Temp 97.9(TE); Pulse Ox 100% on R/A; Weight 131.54 kg; lp1 Height 5 ft. 7 in. (170.18 cm); Pain 6/10; 23:00 BP 129 / 83; Pulse 65; Resp 20; Pulse Ox 100% ; kg 06/23 00:00 BP 123 / 83; Pulse 68; Resp 19; Pulse Ox 100% ; kg 06/22 21:18 Body Mass Index 45.42 (131.54 kg, 170.18 cm) lp1 ED Course: 06/22 20:19 Patient arrived in ED. bp1 21:15 Triage completed. lp1 21:15 Arm band placed on left wrist. lp1 21:45 Luma Lopez, ARNOL is Primary Nurse. kg 21:45 Rivera Santana MD is Attending Physician. mh7 22:43 UPPER EXTREMITY VENOUS UNILATE In Process Unspecified. EDMS 22:51 Shoulder Left (2 View) XRAY In Process Unspecified. EDMS 22:51 Forearm Left XRAY In Process Unspecified. EDMS 23:00 Patient has correct armband on for positive identification. Bed in low position. Call kg light in reach. Side rails up X 1. 23:51 Kong Weir MD is Referral Physician. [facility] 06/23 00:31 No provider procedures requiring assistance completed. Patient did not have IV access kg during this emergency room visit. Administered Medications: 06/22 23:41 Drug: Ketorolac 60 mg Route: IM; Site: right gluteus; kg 06/23 00:22 Follow up: Response: No adverse reaction; Marked relief of symptoms kg Outcome: 06/22 23:52 Discharge ordered by . [facility] 06/23 00:31 Discharged to home ambulatory. kg Condition: improved Discharge instructions given to patient, family, Instructed on discharge instructions, follow up and referral plans. Demonstrated understanding of instructions, follow-up care, medications, Prescriptions given X 1. 00:34 Patient left the ED. kg Signatures: Dispatcher [employer] EDKY Sommer Padron, RN RN lp1 Lidia Breaux Maurice, MD MD 7 Luma Lopez RN RN kg Corrections: (The following items were deleted from the chart) 06/22 21:21 21:18 Pulse 83bpm; Resp 18bpm; Pulse Ox 100% RA; Temp 97.9F Temporal; 131.54 kg; Height lp1 5 ft. 7 in.; BMI: 45.4; Pain 6/10; lp1
--- NOTE | 2021-06-24 16:58 | EDPHYS ---
Physician Documentation [facility] Name: Martha Garcia Age: 41 yrs Sex: Female : 1980 Arrival Date: 06/22/2021 Time: 20:19 Bed 4 Private MD: ED Physician Rivera Santana HPI: 06/22 21:45 This 41 yrs old Female presents to ER via Ambulatory with complaints of Arm mh7 Injury. 21:45 The patient or guardian complains of pain, that is acute. The complaints affect the mh7 Left forearm. Context: The problem was sustained at an unknown location, resulted from unknown cause. Onset: The symptoms/episode began/occurred today. Treatment prior to arrival includes: no previous treatment. Modifying factors: The symptoms are alleviated by nothing. the symptoms are aggravated by movement, Touching the area. Associated signs and symptoms: Pertinent positives: pain, swelling, Pertinent negatives: decreased range of motion, deformity, erythema, fever, nausea, numbness, tingling, vomiting, warmth, weakness. Severity of symptoms: At their worst the symptoms were moderate, earlier today, in the emergency department the symptoms are unchanged. Patient also complains of pain to left shoulder intermittently for 2 months. She states that she is shoulder surgery approximately 5 to 6 years ago for a rotator cuff issue.. [employer]: 06/23 00:32 LMP N/A - Hysterectomy kg Historical: - Allergies: 06/22 21:15 Adhesives; lp1 - Home Meds: 21:15 modafinil oral [Active]; BuSpar Oral [Active]; Percocet Oral [Active]; gabapentin oral lp1 [Active]; Cymbalta oral [Active]; Seroquel Oral [Active]; Omeprazole Oral [Active]; tizanidine oral [Active]; montelukast oral [Active]; - PMHx: 21:15 Bipolar disorder; Chronic pain; lp1 - PSHx: 21:15 Cholecystectomy; hysterecotmy; R ankle; laminectomy; gastric bypass; hernia repair; lp1 - Immunization history:: Adult Immunizations up to date. - Social history:: Smoking status: Patient denies any tobacco usage or history of. ROS: 21:45 Constitutional: Negative for fever, chills, and weight loss, Eyes: Negative for injury, mh7 pain, redness, and discharge, ENT: Negative for injury, pain, and discharge, Neck: Negative for injury, pain, and swelling, Cardiovascular: Negative for chest pain, palpitations, and edema, Respiratory: Negative for shortness of breath, cough, wheezing, and pleuritic chest pain, Abdomen/GI: Negative for abdominal pain, nausea, vomiting, diarrhea, and constipation, Back: Negative for injury and pain, : Negative for injury, bleeding, discharge, and swelling, Skin: Negative for injury, rash, and discoloration, Neuro: Negative for headache, weakness, numbness, tingling, and seizure, Psych: Negative for depression, anxiety, suicide ideation, homicidal ideation, and hallucinations, Allergy/Immunology: Negative for hives, rash, and allergies, Endocrine: Negative for neck swelling, polydipsia, polyuria, polyphagia, and marked weight changes, Hematologic/Lymphatic: Negative for swollen nodes, abnormal bleeding, and unusual bruising. Exam: 21:45 Constitutional: This is a well developed, well nourished patient who is awake, alert, mh7 and in no acute distress. Head/Face: Normocephalic, atraumatic. Eyes: Pupils equal round and reactive to light, extra-ocular motions intact. Lids and lashes normal. Conjunctiva and sclera are non-icteric and not injected. Cornea within normal limits. Periorbital areas with no swelling, redness, or edema. Neck: Trachea midline, no thyromegaly or masses palpated, and no cervical lymphadenopathy. Supple, full range of motion without nuchal rigidity, or vertebral point tenderness. No Meningismus. Chest/axilla: Normal chest wall appearance and motion. Nontender with no deformity. No lesions are appreciated. Cardiovascular: Regular rate and rhythm with a normal S1 and S2. No gallops, murmurs, or rubs. Normal PMI, no JVD. No pulse deficits. Respiratory: Lungs have equal breath sounds bilaterally, clear to auscultation and percussion. No rales, rhonchi or wheezes noted. No increased work of breathing, no retractions or nasal flaring. Abdomen/GI: Soft, non-tender, with normal bowel sounds. No distension or tympany. No guarding or rebound. No evidence of tenderness throughout. Back: No spinal tenderness. No costovertebral tenderness. Full range of motion. Skin: Warm, dry with normal turgor. Normal color with no rashes, no lesions, and no evidence of cellulitis. 21:45 Neuro: Awake and alert, GCS 15, oriented to person, place, time, and situation. Cranial nerves II-XII grossly intact. Motor strength 5/5 in all extremities. Sensory grossly intact. Cerebellar exam normal. Normal gait. Psych: Awake, alert, with orientation to person, place and time. Behavior, mood, and affect are within normal limits. 21:45 Musculoskeletal/extremity: Extremities: noted in the Left shoulder: tenderness, noted in the Left upper forearm volar aspect: pain, swelling, tenderness, ROM: intact in all extremities, Circulation is intact in all extremities. Sensation intact. Compartment Syndrome exam of affected extremity: is normal. no numbness, no tingling, no sensation deficit, no palor, no weak pulses, Joints: the left shoulder displays tenderness, Weight bearing: able to fully bear weight, without difficulty, Tendon exam: specific tendon testing normal through active and passive range of motion DVT Exam: negative Homans' sign noted on exam, no appreciated bluish discoloration, no erythema, no increased warmth, pain, that is mild, of the Left forearm, swelling, that is mild, of the Left forearm, tenderness, that is mild, of the Left forearm. Vital Signs: 21:18 BP 113 / 76; Pulse 83; Resp 18; Temp 97.9(TE); Pulse Ox 100% on R/A; Weight 131.54 kg; lp1 Height 5 ft. 7 in. (170.18 cm); Pain 6/10; 23:00 BP 129 / 83; Pulse 65; Resp 20; Pulse Ox 100% ; kg 06/23 00:00 BP 123 / 83; Pulse 68; Resp 19; Pulse Ox 100% ; kg 06/22 21:18 Body Mass Index 45.42 (131.54 kg, 170.18 cm) lp1 MDM: 06/22 23:50 Differential diagnosis: contusion, tendonitis, arthritis, musculoskeletal pain, DVT. [facility] Data reviewed: vital signs, nurses notes, radiologic studies, plain films, ultrasound. Counseling: I had a detailed discussion with the patient and/or guardian regarding: the historical points, exam findings, and any diagnostic results supporting the discharge/admit diagnosis, radiology results, the need for outpatient follow up, a orthopedic surgeon, to return to the emergency department if symptoms worsen or persist or if there are any questions or concerns that arise at home. Response to treatment: the patient's symptoms have markedly improved after treatment. 23:52 Patient medically screened. [facility] 06/22 21:57 Order name: Shoulder Left (2 View) XRAY [facility] 06/22 21:57 Order name: Forearm Left XRAY [facility] 06/22 22:10 Order name: UPPER EXTREMITY VENOUS UNILATE EDMS Administered Medications: 23:41 Drug: Ketorolac 60 mg Route: IM; Site: right gluteus; kg 06/23 00:22 Follow up: Response: No adverse reaction; Marked relief of symptoms kg Disposition Summary: 06/22/21 23:52 Discharge Ordered Location: Home [facility] Problem: [facility] Symptoms: have improved [facility] Condition: Stable [facility] Diagnosis - Musculoskeletal Pain, Left Upper Extremity [facility] Followup: [facility] - With: Private Physician - When: 1 - 2 days - Reason: Worsening of condition, Recheck today's complaints, Continuance of care, Re-evaluation by your physician Followup: [facility] - With: Kong Weir MD - When: 1 - 2 days - Reason: Worsening of condition, Recheck today's complaints Discharge Instructions: - Discharge Summary Sheet [facility] - Musculoskeletal Pain [facility] Forms: - Medication Reconciliation Form [facility] - Thank You Letter [facility] - Antibiotic Education [facility] - Prescription Opioid Use [facility] Prescriptions: - ketorolac 10 mg Oral tablet - take 1 tablet by ORAL route every 6 hours As needed not to exceed 40 mg in [facility] 24hrs; 12 tablet; Refills: 0, Product Selection Permitted Signatures: Dispatcher [employer] EDMS Sommer Padron RN RN lp1 Rivera Santana MD MD 7 Luma Lopez RN RN kg Corrections: (The following items were deleted from the chart) 06/22 22:10 22:07 Extremity Venous [email or web address] ordered. EDMS EDMS
[2021-06-25 01:51] VITALS: TEMP 97.9; O2SAT 100
[2021-06-25 02:01] VITALS: BP 123/83
== END 2021-06-23 00:34 | disposition home or self-care (01) ==
LOC: ER 20:16
DX: M79.18 Myalgia, other site (principal); G89.29 Other chronic pain; F31.9 Bipolar disorder, unspecified; Z91.048 Other nonmedicinal substance allergy status
CPT/HCPCS: 93971